=== PATIENT | male | born 1935 | race Caucasian/White ===

== ENCOUNTER 2019-11-14 20:17 | Emergency (ER) | payer OTHER, SELFPAY ==
--- NOTE | ~2019-11-14 | CT_ITS ---
EXAMINATION: CT brain wo con DATE: 11/14/2019 22:58 INDICATION: Gait instability. TECHNIQUE: Computed tomography (CT) of the head was performed without intravenous contrast. The mA wa s adjusted according to patient size. Iterative reconstruction technique was employed. The dose-lengt h product was 605.33 mGy-cm. COMPARISON: None FINDINGS: There is diffuse brain volume loss. There is an old lacunar infarct in the carlos. There is a n old lacunar infarct in left thalamus. There is no intracranial hemorrhage, acute infarction, or abn ormal intracranial mass lesion. The ventricles are normal in size. The orbits are normal. There is mi ld mucosal thickening in the ethmoid sinuses. The mastoid air cells are normal. IMPRESSION: 1. 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 Reviewed, dictated and finalized at location A.
[2019-11-14 20:47] VITALS: BP 135/84; PULSE 88; RESP 20; O2SAT 93
--- NOTE | 2019-11-14 20:47 | ECG_ITS ---
Measurements Intervals [place] Rate: 81 P: 55 [place]: 205 QRS: 95 QRSD: 142 T: 30 QT: 386 QTc: 451 Interpretive Statements SINUS RHYTHM WITH FIRST DEGREE AV BLOCK VENTRICULAR PREMATURE COMPLEX RIGHT BUNDLE BRANCH BLOCK ABNORMAL ECG Electronically Signed On 11-15-2019 7:02:18 CDT by Luke Adams D.O.
[2019-11-14 20:55] VITALS: PULSE 87
[2019-11-14 21:00] VITALS: BP 156/56; PULSE 86; RESP 14; O2SAT 93
--- NOTE | 2019-11-14 21:00 | ED.WEAKNESS ---
HPI - Weakness General Chief complaint: Weakness Stated complaint: weak Time Seen by Provider: 11/14/19 20:35 History of Present Illness HPI Narrative: Patient is a 84 y/o male complaining of moderate bilateral leg weakness for last 2 days. He has some difficulty with walking, but he is able to walk with his cane and sometimes walker. There is no alleviating or exacerbating factor. He states that he ran into a wall 2 days ago. He denies falling down or passing out. Related Data Allergies Allergy/AdvReac Type Severity Reaction Status Date / Time No Known Allergies Allergy Unknown Verified 11/16/05 18:25 Review of Systems Constitutional: Constitutional: Denies chills, Denies fever(s), Denies headache(s) and Reports weakness Eyes: Eyes: Denies blurry vision ENT: Denies headache(s) and Denies neck pain Cardiovascular: Cardiovascular: Denies chest pain and Denies dyspnea Respiratory: Respiratory: Denies cough and Denies dyspnea Gastrointestinal: Gastrointestinal: Denies abdominal pain, Denies diarrhea, Denies nausea and Denies vomiting Genitourinary: Genitourinary: Denies hematuria and Denies dysuria Musculoskeletal: Musculoskeletal: Denies back pain and Denies neck pain Neurologic: Denies headache(s) and Reports weakness [facility] Social History Social History Gender identity (if verbalized by the patient): Male Exam Const: General: no acute distress and well developed Orientation/consciousness: oriented to person, oriented to place, oriented to time and patient oriented x3 HENMT: Head: normocephalic Ears: external ears normal General nose exam: Normal external nose present Eyes: General: appearance normal, both eyes and all related structures Conjunctivae: conjunctivae normal Neck: Neck: normal visual inspection and full ROM Chest: Chest palpation & inspection: normal inspection of the chest and no tenderness Resp: Effort & Inspection: normal respiratory effort Auscultation: clear to auscultation bilaterally Cardio: Rate: regular rate Rhythm: regular rhythm GI: GI Palp: No abdominal tenderness and Yes Soft to palpation Skin: General skin exam: normal color and turgor normal Neuro: General: oriented to person, oriented to place, oriented to time and patient oriented x3 Cranial nerves: Yes CN's II-XII intact bilaterally Cognition (Neuro): normal cognition Speech: normal speech Motor exam (neuro): 5/5 motor strength present throughout Sensory Exam: normal sensation Coordination: [id number] test normal and [id number] test normal Extrem: General: normal to inspection, full ROM and no pedal edema Psych: Appearance: grossly normal Mental Status: mental status grossly normal Affect: normal affect Course Reevaluation(s) Reevaluation #1: Patient is able to ambulate while in ED. Date: 11/14/19 Vital Signs Vital signs: Vital Signs Pulse Rate 88 11/14/19 20:47 Respiratory Rate 20 11/14/19 20:47 Blood Pressure 135/84 11/14/19 20:47 Pulse Oximetry 93 11/14/19 20:47 Pulse Rate 87 11/15/19 00:28 Respiratory Rate 18 11/15/19 00:28 Blood Pressure 155/69 H 11/15/19 00:28 Pulse Oximetry 94 11/15/19 00:28 MDM - Weakness Lab Data Result diagrams: 11/14/19 20:58 11/14/19 20:58 Labs: Lab Results 11/14/19 11/14/19 Range/Units 20:58 20:58 WBC 7.9 (4.5-10.0) K/mm3 RBC 4.63 (4.6-6.20) M/mm3 Hgb 13.9 L (14.0-18.0) g/dL Hct 41.8 L (42.0-52.0) % MCV 90.3 (80-100) fl MCH 30.0 (26-34) pg MCHC 33.3 (32-36) g/dl RDW 13.7 (11.5-14.5) % Plt Count 262 (150-375) k/mm3 MPV 11.6 H (7.4-10.4) fl Immature Gran % (Auto) 0.3 (0-0.5) % Neut % (Auto) 59.7 (45.5-73.1) % Lymph % (Auto) 26.5 (18.3-44.2) % [place] % (Auto) 8.7 H (2.6-8.5) % Eos % (Auto) 4.2 (0-4.4) % Baso % (Auto) 0.6 (0.2-1.2) % Lymph # (Auto) 2.10 (0.9-3.2) K/mm3 [place] #
[2019-11-14 21:16] LABS: Basophils Absolute Auto 0.1 K/mm3 (0.0-0.1); Basophils Percent Auto 0.6 % (0.2-1.2); Eosinophils Absolute Auto 0.3 K/mm3 (0-0.3); Eosinophils Percent Auto 4.2 % (0-4.4); Hematocrit 41.8 % (42.0-52.0); Hemoglobin 13.9 g/dL (14.0-18.0); Immature Granulocyte Absolute 0.02 K/mm3 (0.00-0.031); Immature Granulocyte Percent A 0.3 % (0-0.5); Lymphocytes Percent Auto 26.5 % (18.3-44.2); Mean Corpuscular HGB Conc 33.3 g/dl (32-36); Mean Corpuscular Volume 90.3 fl (80-100); Mean Platelet Volume 11.6 fl (7.4-10.4); Monocytes Absolute Auto 0.7 K/mm3 (0.1-0.6); Monocytes Percent Auto 8.7 % (2.6-8.5); Neutrophils Absolute Auto 4.7 K/mm3 (1.3-6.7); Neutrophils Percent Auto 59.7 % (45.5-73.1); Platelet Count Result 262 k/mm3 (150-375); Red Blood Count 4.63 M/mm3 (4.6-6.20); Red Cell Distribution Width 13.7 % (11.5-14.5); White Blood Count 7.9 K/mm3 (4.5-10.0)
[2019-11-14 21:27] LABS: Blood Urea Nitrogen 23 mg/dL (9-20); Calcium 9.2 mg/dL (8.4-10.2); Carbon Dioxide 31 mmol/L (22-30); Chloride 97 mmol/L (98-107); Estimated CRCL calculation 49 ml/min; Estimated Glomerular Filt Rate > 60; Glucose 228 mg/dL (75-110); Potassium 4.5 mmol/L (3.4-5.0); Sodium 136 mmol/L (137-145)
[2019-11-15 00:28] VITALS: BP 155/69; PULSE 87; RESP 18; O2SAT 94
--- NOTE | 2019-11-15 00:32 | PC.NURSE ---
Pt performed walking assessment per Md request, pt tolerated walk well. Pt walked to door and back to bed with no assistance.
== END 2019-11-14 23:25 | disposition home or self-care (01) ==
PROVIDERS: Emergency Provider Emergency Medicine; PCP Family Medicine Adolescent Medicine
DX: R53.1 Weakness (principal); I45.10 Unspecified right bundle-branch block
CPT/HCPCS: 36415; 70450; 80048; 85025; 93005; 99284

== ENCOUNTER 2020-02-24 03:45 | Outpatient (CLI) | payer OTHER, SELFPAY ==
[2020-02-24 17:45] LABS: SARS-CoV-2 RNA PCR Negative
== END 2020-02-24 03:46 | disposition home or self-care (01) ==
LOC: ANHCOVIDDT 03:45
PROVIDERS: PCP Family Medicine Adolescent Medicine; Visit Provider Family Medicine Adolescent Medicine
DX: Z01.812 Encounter for preprocedural laboratory examination (principal); Z20.828 Contact with and (suspected) exposure to other viral communicable diseases; R91.1 Solitary pulmonary nodule
CPT/HCPCS: 87635; C9803; U0003

== ENCOUNTER 2020-02-27 09:31 | Outpatient (CLI) | payer OTHER, SELFPAY ==
[2020-02-21 14:13] VITALS: BMI 26.6
[2020-02-27 10:23] LABS: Basophils Absolute Auto 0.1 K/mm3 (0.0-0.1); Basophils Percent Auto 0.8 % (0.2-1.2); Eosinophils Absolute Auto 0.2 K/mm3 (0-0.3); Hematocrit 39.4 % (42.0-52.0); Hemoglobin 12.6 g/dL (14.0-18.0); Immature Granulocyte Absolute 0.02 K/mm3 (0.00-0.031); Immature Granulocyte Percent A 0.3 % (0-0.5); Lymphocytes Absolute Auto 1.51 K/mm3 (0.9-3.2); Lymphocytes Percent Auto 22.7 % (18.3-44.2); Mean Corpuscular Volume 93.8 fl (80-100); Mean Platelet Volume 10.4 fl (7.4-10.4); Monocytes Absolute Auto 0.6 K/mm3 (0.1-0.6); Monocytes Percent Auto 8.3 % (2.6-8.5); Neutrophils Absolute Auto 4.3 K/mm3 (1.3-6.7); Neutrophils Percent Auto 64.9 % (45.5-73.1); Platelet Count Result 279 k/mm3 (150-375); Red Cell Distribution Width 14.5 % (11.5-14.5); White Blood Count 6.7 K/mm3 (4.5-10.0)
[2020-02-27 10:31] LABS: Prothrombin Time 12.4 Seconds (11.1-14.7)
== END 2020-02-27 09:32 | disposition home or self-care (01) ==
PROVIDERS: Radiology Diagnostic Radiology; PCP Family Medicine Adolescent Medicine; Visit Provider Family Medicine Adolescent Medicine
DX: R91.1 Solitary pulmonary nodule (principal)
CPT/HCPCS: 36415; 85025; 85610

== ENCOUNTER 2020-02-29 10:54 | Outpatient (CLI) | payer OTHER, SELFPAY ==
[2020-02-29] VITALS (10 sets, daily range): BP systolic 125–155; BP diastolic 53–81; PULSE 66–74; RESP 20; TEMP 36.1; O2SAT 95–100
--- NOTE | ~2020-02-29 | XR_ITS ---
EXAMINATION: XR chest 1V portable DATE: 02/29/2020 15:07 INDICATION: Left lung nodule status post percutaneous biopsy. TECHNIQUE: A single frontal view of the chest was obtained. COMPARISON: Chest single view at 12:56 PM. FINDINGS: There is chronic elevation of left hemidiaphragm. There is mild atelectasis in the lower koffi ng zones. There is a nodule in the lingula. A calcified right lung nodule is consistent with old gran ulomatous disease. No pneumothorax. The heart size is normal. IMPRESSION: 1. Nodule in lingula suspicious for primary bronchogenic carcinoma. Reviewed, dictated and finalized at location A.
--- NOTE | ~2020-02-29 | CT_ITS ---
EXAMINATION: CT biopsy lung DATE: 02/29/2020 12:36 INDICATION: Left lung upper lobe nodule. TECHNIQUE: The procedure including the risks, benefits, and alternatives and possibility of chest tub e placement were discussed with the patient. Risks discussed included infection, approximately 1/20 r isk of symptomatic hemorrhage beyond mild hemoptysis, approximately 1/3 risk of pneumothorax, approxi mately 1/10 risk of pneumothorax severe enough to warrant chest tube placement, and rarely . The patient understood the risks and agreed to proceed. The patient was placed supine with the left side elevated. The skin overlying the left chest was prepped and draped in sterile fashion. Anesthetic was administered with 1% lidocaine subcutaneously. A 19 gauge outer needle was advanced under CT lee dance to the lesion of interest. A 20 gauge core biopsy needle was then used to obtain 4 core biopsy specimens. The needle was removed and the entry site was cleaned and dressed. The mA was adjusted acc ording to patient size. Iterative reconstruction technique was employed. The dose-length product was 207.55 mGy-cm. There were no immediate complications. FINDINGS: CT images demonstrate the outer needle tip adjacent to a 19 mm nodule in the lingula. IMPRESSION: 1. CT-guided core needle biopsy of a 19 mm nodule in the lingula. Reviewed, dictated and finalized at location A.
--- NOTE | ~2020-02-29 | XR_ITS ---
EXAMINATION: XR chest 1V portable DATE: 02/29/2020 13:06 INDICATION: Left lung nodule status post percutaneous biopsy. TECHNIQUE: A single frontal view of the chest was obtained. COMPARISON: Chest single view at 12:17 PM FINDINGS: There is chronic mild elevation of left hemidiaphragm. There is a nodule in the lingula. Th ere is mild atelectasis in the lower lung zones. A calcified right lung nodule is consistent with old granulomatous disease. No pleural effusion or pneumothorax. The heart size is normal. IMPRESSION: 1. Nodule in the lingula suspicious for primary bronchogenic carcinoma. Reviewed, dictated and finalized at location A.
--- NOTE | ~2020-02-29 | XR_ITS ---
EXAMINATION: XR chest 1V DATE: 02/29/2020 12:20 INDICATION: Left lung nodule status post percutaneous biopsy. TECHNIQUE: A single frontal view of the chest was obtained. COMPARISON: Chest single view 01/21/2020, chest CT 01/21/2020 FINDINGS: There is chronic elevation of left hemidiaphragm. There is a nodule in the lingula. A calci fied right lung nodule and calcified right hilar lymph nodes are consistent with old granulomatous di sease. There is mild atelectasis in the lower lung zones. No pneumothorax. The heart size is normal. IMPRESSION: 1. Nodule in the lingula suspicious for primary bronchogenic carcinoma. Reviewed, dictated and finalized at location A.
--- NOTE | 2020-02-29 15:38 | SUR.PHASEII ---
1515 - iv marycarmen'smooth. catheter intact
--- NOTE | 2020-02-29 15:39 | SUR.PHASEII ---
1520 dr. alfredo called and okayed to discharge home
== END 2020-02-29 15:30 | disposition home or self-care (01) ==
PROVIDERS: Radiology Diagnostic Radiology; PCP Family Medicine Adolescent Medicine; Visit Provider Family Medicine Adolescent Medicine
DX: R91.1 Solitary pulmonary nodule (principal); C34.92 Malignant neoplasm of unspecified part of left bronchus or lung
CPT/HCPCS: 32405; 71045; 77012; 88305; 88342

== ENCOUNTER 2020-08-02 13:30 | Outpatient (CLI) | payer OTHER, SELFPAY ==
--- NOTE | ~2020-08-02 | PE_ITS ---
EXAMINATION: PET skull to mid thigh DATE: 08/02/2020 15:10 INDICATION: Malignant neoplasm of left lung upper lobe. TECHNIQUE: Blood glucose level was 47 mg/dL. 10.8 mCi of 18-fluorodeoxyglucose (18-FDG) was administe red i.v. Low dose computed tomography (CT) images were acquired from the base of the brain to the pro ximal thighs for attenuation correction and anatomic localization. Automated exposure control was emp loyed. Dose-length product (DLP) was 657 mGy-cm. Positron emission tomography (PET) images were acqui red in the same distribution. COMPARISON: Chest CT 01/21/2020 FINDINGS: Head/neck: There are no pathologically enlarged lymph nodes. Chest: There is mild scarring at the lung apices. There is mild emphysema. There are scattered ground glass opacities in the lungs bilaterally, likely chronic lung disease. There is a 4.2 x 2.4 cm mass i n the lingula, likely a combination of malignancy and treatment change or pneumonia. There is increas ed activity in a 2 cm focus at the medial aspect of the mass with maximum SUV of 7.2. Calcified right lung nodules and calcified right hilar and mediastinal lymph nodes are consistent with old granuloma tous disease. No pleural effusion. The heart size is normal. No pericardial effusion. There are coron romeo artery calcifications. There is mediastinal lymphadenopathy without increased activity. For examp le, a right paratracheal node measures 3.0 x 2.2 cm. Abdomen/pelvis/proximal thighs: The liver, gallbladder, spleen, pancreas, adrenal glands, and right k idney are normal. There is a 17 mm peripelvic cyst in left kidney. There are no dilated loops of massimo l. There is a left inguinal hernia containing nonobstructed sigmoid colon. There is a right inguinal hernia containing fat. There are stents in right common iliac artery and right superficial femoral ar dixie. There are no pathologically enlarged lymph nodes. There is no free intraperitoneal fluid. There is no osseous malignancy. IMPRESSION: 1. Mass in the lingula with increased activity at its medial aspect, likely a combination of primary bronchogenic carcinoma and peripheral postobstructive pneumonia versus treatment change. 2. Worsened mediastinal lymphadenopathy without increased activity, which may be reactive lymphadenop athy or treated metastatic disease. 3. Left inguinal hernia containing nonobstructed sigmoid colon. Reviewed, dictated and finalized at location A. IMPRESSION: 1. Mass in the lingula with increased activity at its medial aspect, likely a c ombination of primary bronchogenic carcinoma and peripheral postobstructive pne umonia versus treatment change. 2. Worsened mediastinal lymphadenopathy without increased activity, which may b e reactive lymphadenopathy or treated metastatic disease. 3. Left inguinal hernia containing nonobstructed sigmoid colon.
[2020-08-02 13:54] LABS: Glucose Point of Care 47 (65-105)
== END 2020-08-02 13:31 | disposition home or self-care (01) ==
PROVIDERS: PCP Family Medicine Adolescent Medicine; Visit Provider Radiology Radiation Oncology
DX: C34.12 Malignant neoplasm of upper lobe, left bronchus or lung (principal)
CPT/HCPCS: 78815; A9552

== ENCOUNTER 2020-10-07 09:30 | Inpatient (IN) | payer OTHER, SELFPAY ==
[2020-10-07] VITALS (36 sets, daily range): BP systolic 110–168; BP diastolic 52–126; PULSE 92–111; RESP 17–35; TEMP 36.3–36.9; O2SAT 94–97; BMI 21.6
--- NOTE | ~2020-10-07 | CT_ITS ---
EXAMINATION: CT brain wo con, CT cervical spine wo con EXAM DATE: 10/07/2020 10:41 INDICATION: Slurred speech for one week, confusion. Left facial droop. Fell this morning. TECHNIQUE: Spiral CT of the head was performed without contrast. Axial, coronal and sagittal images were reviewed. Spiral CT of the cervical spine was performed without contrast. Axial images were rev iewed. Coronal and sagittal reformatted images were also reviewed. The dose-length product (DLP) fo r this examination was 605.33 (accession [id number]), 183.19 (accession [id number]) mGy-cm. The exposure was tailored according to patient size, and iterative reconstruction (ASIR) was used as additional dose reduction technique. Comparison is made to prior examination from 11/14/2019. FINDINGS: HEAD CT: There is moderate-sized acute to subacute left parietal lobe infarction, middle cerebral art sean distribution. No hemorrhagic conversion. There is right-sided pontine lacunar infarction. There i s no acute intraparenchymal hemorrhage. No evidence of intraparenchymal brain mass lesion. There is mild periventricular and subcortical hypodensity, nonspecific but probably related to small vessel i schemic disease. There is moderate to severe prominence of the sulci and ventricles related to cere bral atrophy. There is no mass effect or midline shift. There is no obstructive hydrocephalus susp ected. There are no extra-axial collections. There are no acute calvarial fractures. The orbits ar e unremarkable. Soft tissue is unremarkable. The visualized sinuses and mastoid air cells are well aerated. CERVICAL CT: There is no evidence of acute cervical fracture. The odontoid process is intact. Pre- dens space is normal. Prevertebral soft tissue is normal. There are no soft tissue abnormalities id entified. There is no disc space widening or traumatic vertebral body subluxation suspected. Advanc ed cervical spondylosis. A detailed level by level evaluation of spondylosis can be added as addendu m if requested. IMPRESSION: 1. Moderate-sized acute to subacute left parietal lobe infarction. 2. Old right carlos lacunar infarction. 3. Age-related intracranial findings. 4. Advanced cervical spondylosis. Reviewed, dictated and finalized at location A. IMPRESSION: 1. Moderate-sized acute to subacute left parietal lobe infarction. 2. Old right carlos lacunar infarction. 3. Age-related intracranial findings. 4. Advanced cervical spondylosis.
--- NOTE | ~2020-10-07 | US_ITS ---
EXAMINATION: US carotid duplex BI DATE: 10/09/2020 16:45 INDICATION: Acute infarct involving the left frontal, parietal, and temporal lobes. TECHNIQUE: Grayscale, color Doppler, and pulsed Doppler images of the cervical carotid arteries were obtained. The degree of vessel stenosis is placed in one of the following categories: normal, <50%, 5 0-69%, >=70% but less than near-occlusion, near-occlusion, or total occlusion. Note that percent sten osis relative to normal distal artery lumen diameter is indirectly measured from velocity measurement s as described by David, et al. Radiology 2003; [id number]:[id number]. COMPARISON: None. FINDINGS: RIGHT: The right common carotid artery (CCA) peak systolic velocity (PSV) is 100 cm/s. The right internal ca rotid artery (ICA) PSV is 90 cm/s. The right ICA end-diastolic velocity (EDV) is 17 cm/s. The right I CA/CCA PSV ratio is 0.9. Grayscale and color Doppler images yield an estimate of <50% diameter reduct ion from plaque in the ICA. There is antegrade flow in the right vertebral artery. LEFT: The left CCA PSV is 75 cm/s. The left ICA PSV is 78 cm/s. The left ICA EDV is 14 cm/s. The left ICA/C CA PSV ratio is 1.0. Grayscale and color Doppler images yield an estimate of <50% diameter reduction from plaque in the ICA. There is antegrade flow in the left vertebral artery. IMPRESSION: 1. <50% stenosis in the right internal carotid artery. 2. <50% stenosis in the left internal carotid artery. Reviewed, dictated and finalized at location A.
--- NOTE | ~2020-10-07 | XR_ITS ---
EXAMINATION: XR hip LT 2V w AP pelvis EXAM DATE: 10/07/2020 10:57 INDICATION: Initial encounter following injury, with pain of the left groin. TECHNIQUE: Left hip frontal, 'frog leg' projections for interpretation. Frontal projection pelvis. There is no prior study for comparison. FINDINGS: Smooth left hip femoral head contour, no radiographic evidence of avascular necrosis. The re are no acute pelvic or left hip fractures identified. Right superficial femoral arterial stent or graft. Right common iliac artery stent. There is mild to moderate symmetric bilateral hip primary ost eoarthritis. IMPRESSION: No acute pelvis, left hip fractures. Reviewed, dictated and finalized at location A.
--- NOTE | ~2020-10-07 | MR_ITS ---
EXAMINATION: MR brain/brain stem wo/w con DATE: 10/09/2020 16:18 INDICATION: Left facial weakness. Slurred speech. Cerebral vascular accident. TECHNIQUE: Magnetic resonance imaging (MRI) of the brain and brainstem was performed without and with 14 mL MultiHance intravenous contrast. Sequences included sagittal and axial T1-weighted FSE, axial diffusion-weighted FS EPI, axial T2*-weighted GRE, axial T2-weighted FLAIR Propeller, and axial T2-we ighted Propeller. Postcontrast sequences included axial and coronal T1-weighted FSE. Apparent diffusi on coefficient (ADC) maps were created. COMPARISON: Head CT 10/07/2020 FINDINGS: There is an acute infarct involving the left frontal, parietal, and temporal lobes in the e xpected distribution of left middle cerebral artery. There is old infarct in the carlos. There are scat tered areas of nonspecific increased T2-weighted signal intensity in the cerebral white matter, which is within normal limits for the patient's age. There is no intracranial hemorrhage, acute infarction , or abnormal intracranial mass lesion. The ventricles are normal in size. There is mild mucosal thic kening in the paranasal sinuses. The orbits are normal. The mastoid air cells are normal. IMPRESSION: 1. Acute infarct involving the left frontal, parietal, and temporal lobes. 2. Old infarct in the carlos. Reviewed, dictated and finalized at location A.
--- NOTE | ~2020-10-07 | XR_ITS ---
EXAMINATION: XR knee LT min 4V EXAM DATE: 10/07/2020 10:57 INDICATION: Unwitnessed fall. TECHNIQUE: Left knee frontal, crosstable lateral, orthogonal oblique projections for interpretation. There is no prior study for comparison. FINDINGS: No evidence osteochondral defect or joint body in the left knee joint. There is mild prim romeo osteoarthritis. There are no acute fractures or dislocations identified. There is no subcutaneou s gas. There are arterial calcifications, arteriosclerosis. There are no radiopaque foreign bodies . No joint effusion. IMPRESSION: 1. XR knee LT min 4V exam without acute osseous findings. Reviewed, dictated and finalized at location A.
--- NOTE | ~2020-10-07 | XR_ITS ---
EXAMINATION: XR chest 1V EXAM DATE: 10/07/2020 10:57 INDICATION: Shortness of breath. Unwitnessed fall. Lingular adenocarcinoma. TECHNIQUE: Portable AP frontal chest x-ray was obtained. Comparison is made to prior examination from 02/29/2020. FINDINGS: There is increase in amount of left basilar airspace disease, in patient with known primary lung cancer in this location. Progression of that disease process, or development of superimposed pn eumonia. No pneumothorax. There is aortic arteriosclerosis. Chronic left hemidiaphragm elevation. No pneumothorax. IMPRESSION: 1. Progression of left basilar opacity, cancer and/or pneumonia. Reviewed, dictated and finalized at location A.
--- NOTE | ~2020-10-07 | XR_ITS ---
EXAMINATION: XR chest 1V portable EXAM DATE: 10/12/2020 05:53 INDICATION: Pneumonia and lung CA. TECHNIQUE: Portable AP frontal chest x-ray was obtained. Comparison is made to prior examination from 10/07/2020. FINDINGS: Previous exam from 5 days ago at some patchy left basilar airspace disease and mild volume loss. There is now complete opacity of the left hemithorax with ipsilateral mediastinal shift. This i s mostly atelectasis which could be postobstructive given that left mainstem bronchus appears cut off and no real evidence of air bronchograms. Also likely left pleural effusion which is difficult to qu antify. Consider prior chest x-ray, probable also bilateral pulmonary edema or pneumonia. There is ao rtic arteriosclerosis. There are bony degenerative changes. There is no pneumothorax suspected. IMPRESSION: 1. Completely collapsed left lung most likely postobstructive atelectasis. 2. Probable superimposed pneumonia or edema bilaterally. Reviewed, dictated and finalized at location A.
--- NOTE | ~2020-10-07 | XR_ITS ---
EXAMINATION: XR ankle LT min 3V EXAM DATE: 10/07/2020 10:56 INDICATION: Initial encounter following injury, with pain of the left ankle. TECHNIQUE: Left ankle frontal, lateral and oblique projections obtained and reviewed. There is no pr ior study for comparison. FINDINGS: The left ankle mortise appears intact. There are no acute fractures or dislocations ident ified. There is no subcutaneous gas. Soft tissue obscured by overlying bandage/compression wrap. T here are no radiopaque foreign bodies. IMPRESSION: 1. XR ankle LT min 3V exam without acute osseous findings. Reviewed, dictated and finalized at location A.
--- NOTE | 2020-10-07 09:41 | ECG_ITS ---
Measurements Intervals [place] Rate: 107 P: 43 [place]: 171 QRS: 103 QRSD: 146 T: 17 QT: 336 QTc: 449 Interpretive Statements SINUS TACHYCARDIA RIGHT AXIS DEVIATION RIGHT BUNDLE BRANCH BLOCK BASELINE ARTIFACT- I, II, AVR, AVL, AVF, V2-V4 ABNORMAL ECG Electronically Signed On 10-07-2020 15:17:17 CDT by Luke Adams D.O.
[2020-10-07 09:49] LABS: Glucose Point of Care 202 mg/dl (65-105)
--- NOTE | 2020-10-07 09:54 | ED.AMS ---
HPI - Altered Mental Status General Chief Complaint: Altered Mental Status Stated Complaint: sob/neuro Source: patient, EMS, RN notes reviewed and old records reviewed Mode of arrival: EMS Limitations: altered mental status History of Present Illness HPI narrative: This is an 85 year old male who presents for evaluation of shortness of breath. EMS states patient's son called them because he found patient on the ground this morning, and the patient appeared to have trouble breath. EMS states after patient blew his nose, his son states his shortness of breath resolved. Patient is oriented to person and place. EMS reports patient was found to have left facial droop and slurred speech, and they were told by his son that patient has been consistently slurred for 1 week. Patient is unable to state why he fell and how long he has been on the ground. His only complaint is left leg pain. He has difficulty extending his leg. Both of his legs are wrapped with coban and he states home health comes to his house. Related Data Home Medications Medication Instructions Recorded Confirmed amlodipine 10 mg PO HS 01/21/20 10/07/20 gabapentin 300 mg PO BID 01/21/20 10/07/20 metformin 1,000 mg PO BID 01/21/20 10/07/20 pantoprazole 40 mg PO DAILY PRN 01/21/20 10/07/20 hydrocodone-acetaminophen [[place]] 1 tablet PO Q4H PRN 02/21/20 10/07/20 Allergies Allergy/AdvReac Type Severity Reaction Status Date / Time No Known Allergies Allergy Unknown Verified 10/07/20 17:54 Review of Systems Review of Systems: ROS unobtainable: Yes unobtainable due to mental status PMFSH Past Medical History Medical History (Updated 10/07/20 @ 19:27 by Ledy White MD) Diabetes mellitus Diastolic congestive heart failure GERD (gastroesophageal reflux disease) HTN (hypertension), malignant Hyperlipidemia Lung cancer Peripheral artery disease SVT (supraventricular tachycardia) (~2012) Surgical History Surgical History (Updated 08/28/20 @ 10:58 by Avery Luna MD) H/O inguinal hernia repair Hx of tonsillectomy Status post peripheral artery angioplasty with insertion of stent superficial femoral artery stent July 2016 Family History Family History Father Acute myocardial infarction Mother Diabetes mellitus Social History Social History (Updated 10/07/20 @ 17:33 by Arti Castaneda NP) Social History: he is a former smoker. He smoked on average 1 pack of cigarettes per day and started when he was 15 years old. He he stopped smoking in 2012. He drank quite heavily when he was in his 30s and 40s but has not drank any alcohol in many years. He has been since October 2019. 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 Primary care physician: Dr. Cristhian Isabel Code status: The patient states that he does not think he would want to have CPR or be intubated. But he is concerned that his son's will not be able to afford to live without him. He states that his son's need is still security in order to support themselves. He does not have a surrogate decision maker or advanced directives in place. it was determined that the patient is a DNR. Smoking packs per day: 2 Smoking cigarettes per day: 40.0 Years smoked: 60 Smoking pack-years: 120.00 Smoking status: Former smoker Tobacco type: cigarettes Alcohol intake: former Substance use type: does not use Gender identity (if verbalized by the patient): Male Spiritual care concerns: No Exam Const: General: alert, confusion and ill appearing HENMT: Face and sinus: other (right facial droop) Mouth: Yes lip normal and Yes moist mucous membranes Throat: uvula midline Eyes: EOM: EOMs intact bilaterally Chest: Chest palpation & inspection: normal inspection of the chest Resp: Effort & Inspection: normal respiratory effort and no retractions Auscultation: cl
[2020-10-07 09:55] LABS: Alveolar/Arterial O2 Gradient 51.4 mmHg; Base Excess ABG 1.8 mEq/l (+/-2.0); Device ROOM AIR; Fractional Inspired Oxygen 21 %; HCO3 ABG 25.1 mEq/l (22.0-26.0); Modified Allen's Test Pass; Oxygen Content ABG 12.6 %vol (16.0-22.0); Oxygen Saturation ABG 91.8 % (95.0-100.0); Oxyhemoglobin 88.3 % THb (90.0-100.0); PCO2 ABG 34.5 mmHg (35.0-45.0); PO2 FiO2 Ratio Arterial Blood 2.71 %; Site Drawn RIGHT RADIAL; Total Hemoglobin 10.1 g/dL (12.0-18.0)
--- NOTE | 2020-10-07 10:21 | PC.NURSE ---
Patient was given bed bath at this time and lily care provided. Noted patient is coverd in food and unkempt/disheveled. Noted sore to buttock with redness and excoriated. Also seen redness in lily area. Repositioned at this time and linens changed.
--- NOTE | 2020-10-07 10:30 | PC.NURSE ---
To CT at this time, unable to obtain labs. Will attempt blood draw when return to unit.
[2020-10-07 11:20] LABS: Basophils Percent Auto 0.2 % (0.2-1.2); Eosinophils Percent Auto 0.1 % (0-4.4); Hematocrit 30.9 % (42.0-52.0); Immature Granulocyte Absolute 0.15 K/mm3 (0.00-0.031); Immature Granulocyte Percent A 0.9 % (0-0.5); Mean Corpuscular HGB Conc 32.4 g/dl (32-36); Mean Corpuscular Hemoglobin 28.4 pg (26-34); Mean Corpuscular Volume 87.8 fl (80-100); Mean Platelet Volume 10.3 fl (7.4-10.4); Monocytes Absolute Auto 1.1 K/mm3 (0.1-0.6); Monocytes Percent Auto 6.6 % (2.6-8.5); Neutrophils Absolute Auto 14.1 K/mm3 (1.3-6.7); Neutrophils Percent Auto 87.2 % (45.5-73.1); Platelet Count Result 293 k/mm3 (150-375); Red Blood Count 3.52 M/mm3 (4.6-6.20); Red Cell Distribution Width 14.5 % (11.5-14.5); White Blood Count 16.1 K/mm3 (4.5-10.0)
[2020-10-07 11:24] LABS: Add Urine Microscopic? YES; Appearance Urine Clear (Clear); Bacteria Urine Trace /hpf; Bilirubin Urine Negative (Negative); Blood Urine Negative (Negative); Color Urine Yellow (Yellow); Glucose Urine UA 1+ mg/dL (Negative); Ketones Urine Trace mg/dL (Negative); Leukocyte Esterase Ur Negative LEU/UL (Negative); Mucus Urine Rare /lpf; Nitrate Urine Negative (Negative); Protein Urine 2+ mg/dL (Negative); Specific Grav Ur 1.026 (1.001-1.035); Squamous Epithelial Cell Urine Rare /hpf (Few); Urobilinogen Urine Negative mg/dL (<2.0); WBC Urine 0-3 /hpf
[2020-10-07 11:29] LABS: INR 1.1; Prothrombin Time 15.1 Seconds (11.1-14.7)
[2020-10-07 11:30] LABS: Alanine Aminotransferase 16 U/L (4-50); Albumin Level 2.8 g/dL (3.5-5.1); Alkaline Phosphatase 83 U/L (38-126); Ammonia < 9 umol/L (9-30); Anion Gap 8 mmol/L (8-16); Aspartate Amino Transferase 31 U/L (17-59); Bilirubin,Total 0.8 mg/dL (0.2-1.3); Blood Urea Nitrogen 21 mg/dL (9-20); Calcium 8.4 mg/dL (8.4-10.2); Carbon Dioxide 25 mmol/L (22-30); Chloride 101 mmol/L (98-107); Creatine Kinase 222 U/L (55-170); Estimated CRCL calculation 76 ml/min; Estimated Glomerular Filt Rate > 60; Ethanol < 10 mg/dL (<10); Glucose 211 mg/dL (75-110); Partial Thromboplastin Time 37.1 SECONDS (22.3-36.8); Potassium 4.6 mmol/L (3.4-5.0); Sodium 134 mmol/L (137-145)
[2020-10-07 11:41] LABS: Amphetamine Screen Urine Negative (Negative); Barbiturate Screen Urine Negative (Negative); Benzodiazepines Screen Urine Negative (Negative); Cannabinoid Screen Urine Negative (Negative); Cocaine Screen Urine Negative (Negative); Methadone Screen Urine Negative (Negative); Opiate Screen Urine Positive (Negative); Phencyclidine Screen Urine Negative (Negative)
[2020-10-07 11:51] LABS: Troponin I 0.035 ng/mL (0.000-0.034)
--- NOTE | 2020-10-07 16:15 | ADMGEN ---
This patient, Behzad Moon, was admitted to Medical Room 341-01. Patient/family oriented to hospital policies and general routines including ID bracelet, bed and alarms, visiting hours, pain management, procedures, bathroom and other care routines, personal items, smoking policy, room service/diet, and visiting hours. Information on how to activate the Rapid Response Team has been discussed. Patient/Family are encouraged to report perceived risks to care and to ask questions if they do not understand what they are told or what they should do.
[2020-10-07] MEDS: SODIUM CHLORIDE 0.9% IV 1,000 ML 125 ML IV CONT (17:09)
--- NOTE | 2020-10-07 17:13 | PM.IMHP ---
H&P: HPI History of Present Illness Date/Time: 10/07/20 17:13Thicarol is a 85-year-old male patient who lives with his disabled son. The patient came to the emergency room to be evaluated for shortness of breath. EMS stated that the patient's son called because he found him on the ground this morning and appeared to be having problems breathing. The patient fluids nose and then his shortness of breath was resolved. The patient was orientated to person and place. EMS found that the patient had a facial droop and slurred speech. The disabled son told EMS that the patient's speech had been slurred for 1 week. The patient was not able to tell EMS how long you have been on the ground. He also complained of left leg pain. He had wraps on his lower extremities when I was in the emergency room and is to dizzy came to the medical floor we unwrapped the been found a large amount of eschar tissue to the left leg. The patient was unkempt and smells of cigarette smoke and body odor. The patient was having difficulty standing his left leg. Home health does come to his home. The patient has a history of having lung cancer and has radiation treatments. However it looks like the last time he saw Radiation Oncology was 08/28/2020. 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 The patient's white count was noted to be 16.1 hip and pelvis x-ray were read as no acute pelvis, left hip fracture. Knee x-ray to the left was without osseous findings. X-ray of the left ankle x-ray ankle left three-view exam without acute osseous findings. Chest x-ray was read as progression of left basilar opacities, cancer and or pneumonia. Head CT was read as moderate sized acute to subacute left parietal lobe infarction. Old right carlos lacunar infarction. Age-related intracranial findings. Advanced cerebral spondylosis.The patient's speech was slurred and I was having difficulty understanding the patient. The ER provider reviewed the power immigration attorney papers and talked with the patient's son And it was determined that the patient is a DNR. The patient is being admitted to inpatient services on the date of service of 10/07/2020. Chief Complaint: Confusion and fall Review of Systems Review of Systems: All systems reviewed & are unremarkable except as noted in HPI and below Constitutional: Constitutional: Reports as per HPI and Reports no additional constitutional complaints Eyes: Eyes: Reports as per HPI and Reports no additional eye complaints ENT: Reports system reviewed and no additional complaints, except as documented and Reports Normal hearing present Cardiovascular: Cardiovascular: Reports no additional cardiovascular complaints Respiratory: Respiratory: Reports no additional respiratory complaints and Reports no additional respiratory complaints Gastrointestinal: Gastrointestinal: Reports as per HPI and Reports no additional gastrointestinal complaints Musculoskeletal: Musculoskeletal: Reports no additional musculoskeletal complaints Integumentary/Breasts: Skin/Breast: Reports system reviewed and no additional complaints, except as docu and Reports as per HPI Neurologic: Reports system reviewed and no additional complaints, except as documented, Reports as per HPI and Reports Normal hearing present Psychiatric: Psychiatric: Reports no additional psychiatric complaints and Reports as per HPI Endocrine: Endocrine: Reports no additional endocrine complaints Hematologic/Lymphatic: Hematologic/Lymphatic: Reports no additional hematologic/lymphatic complaints Allergic/Immunologic: Allergic/Immunologic: Reports no additional allergic/immunologic complaints [facility] Past Medical History Medical History (Updated 10/07/20 @ 17:48 by Arti Castaneda NP) Diabetes mellitus Diastolic congestive heart failure GERD (gastroesophageal reflux disease) HTN (hypertension), malignant Hyperlipidemia Lung cancer Per
[2020-10-07 18:26] LABS: Glucose Point of Care 198 mg/dl (65-105)
[2020-10-07 23:19] LABS: Glucose Point of Care 167 mg/dl (65-105)
[2020-10-08] VITALS (12 sets, daily range): BP systolic 140–146; BP diastolic 41–43; PULSE 90–109; RESP 18–24; TEMP 35.8–36.6; O2SAT 91–94
[2020-10-08] MEDS: SODIUM CHLORIDE 0.9% IV 1,000 ML 125 ML IV CONT ×3 (02:54→21:47)
--- NOTE | 2020-10-08 06:00 | ECHO_ITS ---
Patient Info Name: Behzad Moon Age: 85 years : 1935 Gender: Male Ht: 71 in Wt: 155 lbs BSA: 1.87 m2 HR: 68 bpm BP: 140 / 43 mmHg Heart Rhythm: Sinus Rhythm Technical Quality: Good Exam Date: 10/08/2020 11:37 AM Exam Location: [facility] Pulmonary Exam Room: 341 Patient Status: Inpatient Admit Date: 10/07/2020 Staff Ordering Physician: Ledy White MD Shift Stacker: [id number] Attending Provider: Uli Quintanilla MD Referring Physician: Cindy RIGGS; Exam Type: CA echo doppler color flow Study Info Indications - CVA Complete two-dimensional, color flow and Doppler transthoracic echocardiogram is performed. Summary 1. Complete two-dimensional, color flow and Doppler transthoracic echocardiogram is performed. 2. There is mild concentric increased left ventricular wall thickness. 3. Left ventricular systolic function is normal, estimated at 65-70%. 4. Left atrial chamber dimension is mildly enlarged. 5. The mitral valve annulus is mildly calcified. 6. Anterior mitral leaflet is mildly thickened. Left Ventricle Left ventricular chamber dimension is normal. Left ventricular systolic function is normal, estimated at 65-70%. There is mild concentric increased left ventricular wall thickness. The left ventricular diastolic function is grade I diastolic dysfunction. Right Ventricle Right ventricular chamber dimension is normal. Left Atria Left atrial chamber dimension is mildly enlarged. Right Atria Right atrial chamber dimension is normal. Aortic Valve The aortic valve is normal. Pulmonic Valve The pulmonic valve is normal. Mitral Valve The mitral valve has thickened leaflets. The mitral valve annulus is mildly calcified. Anterior mitral leaflet is mildly thickened. Tricuspid Valve The tricuspid valve leaflets are normal. There is mild tricuspid valve regurgitation. Pericardium/Pleural The pericardium appears normal. Aorta The aortic root size at the sinus of Valsalva is normal. Left Ventricular Outflow Tract Name Value Normal LVOT 2D LVOT Diameter 2.0 cm LVOT Doppler LVOT Peak Velocity 120 cm/s LVOT Peak Gradient 6 mmHg LVOT Mean Gradient 3 mmHg LVOT VTI 23 cm LVOT VTI/AV VTI Ratio 0.7 LVOT Stroke Volume 72 ml LVOT CO 15.8 l/min LVOT CI 8.5 l/min/m2 Pulmonic Valve Name Value Normal PV Doppler PV Peak Velocity 99 cm/s PV Peak Gradient 4 mmHg Mitral Valve Name Value Normal
[2020-10-08 06:06] LABS: Basophils Percent Auto 0.2 % (0.2-1.2); Eosinophils Absolute Auto 0.1 K/mm3 (0-0.3); Eosinophils Percent Auto 0.4 % (0-4.4); Hematocrit 29.5 % (42.0-52.0); Hemoglobin 9.5 g/dL (14.0-18.0); Immature Granulocyte Percent A 0.6 % (0-0.5); Lymphocytes Absolute Auto 1.05 K/mm3 (0.9-3.2); Lymphocytes Percent Auto 6.8 % (18.3-44.2); Mean Corpuscular HGB Conc 32.2 g/dl (32-36); Mean Corpuscular Hemoglobin 28.3 pg (26-34); Mean Corpuscular Volume 87.8 fl (80-100); Mean Platelet Volume 10.4 fl (7.4-10.4); Monocytes Percent Auto 6.4 % (2.6-8.5); Neutrophils Absolute Auto 13.3 K/mm3 (1.3-6.7); Neutrophils Percent Auto 85.6 % (45.5-73.1); Platelet Count Result 277 k/mm3 (150-375); Red Blood Count 3.36 M/mm3 (4.6-6.20); Red Cell Distribution Width 14.4 % (11.5-14.5); White Blood Count 15.5 K/mm3 (4.5-10.0)
[2020-10-08 06:13] LABS: Glucose Point of Care 158 mg/dl (65-105)
[2020-10-08 06:30] LABS: Alanine Aminotransferase 17 U/L (4-50); Albumin Level 2.5 g/dL (3.5-5.1); Alkaline Phosphatase 84 U/L (38-126); Anion Gap 8 mmol/L (8-16); Aspartate Amino Transferase 42 U/L (17-59); Bilirubin,Total 0.7 mg/dL (0.2-1.3); Blood Urea Nitrogen 11 mg/dL (9-20); Calcium 7.8 mg/dL (8.4-10.2); Carbon Dioxide 24 mmol/L (22-30); Chloride 101 mmol/L (98-107); Estimated CRCL calculation 88 ml/min; Estimated Glomerular Filt Rate > 60; Glucose 163 mg/dL (75-110); Magnesium 1.6 mg/dL (1.6-2.3); Potassium 3.6 mmol/L (3.4-5.0); Sodium 133 mmol/L (137-145)
[2020-10-08 07:07] LABS: Lactic Acid Reflex 1.1 mmol/L (0.7-2.1)
[2020-10-08 08:05] LABS: Glucose Point of Care 175 mg/dl (65-105)
--- NOTE | 2020-10-08 08:33 | PCOTNOTE ---
OT evaluation attempted. Unable to arouse at this time. Will attempt at later time.
--- NOTE | 2020-10-08 08:33 | PCPTNOTE ---
Attempted PT eval. Unable to arouse pt. Will try again at later time.
[2020-10-08] MEDS: ASPIRIN 300 MG SUPPOSITORY RECTAL (09:42)
--- NOTE | 2020-10-08 09:53 | WPDNEURCNPN ---
Assessment and Plan Additional Plan bilateral signs would benefit from the MRI of the brain and cervical spine to rule out the additional possibility of cervical myelopathy Consult date: 10/08/20 Time Seen: 09:30 HPI: Behzad Moon is a 85 year old male admitted to the hospital through the emergency room for complaints of increasing difficulties in breathing EMS were called at home because he was found on the ground in the morning and appeared to have some breathing difficulties he was oriented to person and place but the EMS noted that he had a facial droop along with the slurred speech which according to the disabled son had been going on for at least 1 week he also complained of left leg pain and had wraps on his lower extremities and while in the emergency room he complained of being dizzy he has general hygiene was poor patient does have ongoing history of carcinoma of the lung with the history of having had the radiation treatment but reportedly he had seen the radiologist [facility] oncologist on August 28, 2020 he was found to have leukocytosis with 16.1 contact x-rays the hip and pelvis were normal so as the other x-rays but chest x-ray was with left basilar opacities raising the possibility of cancer and pneumonia patient was noted to have moderate size subacute left parietal lobe infarction on the CT scan of the head in addition to old right carlos lacunar infarction was noted Shefali with slurred speech and difficulties and standing the examiner he did have ongoing history of diabetes mellitus with diastolic congestive heart failure GERD hypertension hyperlipidemia and carcinoma of the lung as mentioned above also supra ventricular tachycardia, patient reportedly former smoker with history of 60 years smoked 120 pack years and former alcohol intake evaluation documented routine his lab mild abnormalities with cervical spine CT scan showing moderate size acute to subacute left parietal lobe infarction and old right carlos lacunar infarction with no evidence of bleed and advanced cervical spondylosis Review of Systems Review of Systems: All systems reviewed & are unremarkable except as noted in HPI and below PMFSH Past Medical History Medical History Diabetes mellitus Diastolic congestive heart failure GERD (gastroesophageal reflux disease) HTN (hypertension), malignant Hyperlipidemia Lung cancer Peripheral artery disease SVT (supraventricular tachycardia) (~2012) Surgical History Surgical History H/O inguinal hernia repair Hx of tonsillectomy Status post peripheral artery angioplasty with insertion of stent superficial femoral artery stent July 2016 Family History Family History Father Acute myocardial infarction Mother Diabetes mellitus Social History Social History Social History: he is a former smoker. He smoked on average 1 pack of cigarettes per day and started when he was 15 years old. He he stopped smoking in 2012. He drank quite heavily when he was in his 30s and 40s but has not drank any alcohol in many years. He has been since October 2019. 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 Primary care physician: Dr. Cristhian Isabel Code status: The patient states that he does not think he would want to have CPR or be intubated. But he is concerned that his son's will not be able to afford to live without him. He states that his son's need is still security in order to support themselves. He does not have a surrogate decision maker or advanced directives in place. it was determined that the patient is a DNR. Smoking packs per day: 2 Smoking cigarettes per day: 40.0 Years smoked: 60 Smoking pack-years: 120.00 Smoking status: Former smoker Tobacco type: cigarettes Alcohol inta
[2020-10-08 11:39] LABS: Glucose Point of Care 183 mg/dl (65-105)
--- NOTE | 2020-10-08 14:02 | PC.NURSE ---
calls placed to both Dr Hussein and Dr Mcfarland's offices for info on stents this pt has in place to confirm if he can have MRI, Dr Mcfarland's office is sending information, info from pt's wallet is complete from Dr Hussein's visits
--- NOTE | 2020-10-08 15:03 | PM.IMPN ---
Progress Note: A&P Assessment and Plan (1) CVA (cerebral vascular accident): Code(s): I63.9 - Cerebral infarction, unspecified Status: Acute Assessment and Plan: CT brainw ith mdoerate sized acute to subsacute left parietal lobe infarction, old right carlos lacular infarctions, cervical spondylosis, age related intracranial findings. brain MRI ordered. neurology on consult. on aspiri 300 mg pr as npo. otherswise on aspirin and plvix. statin. dysphagia PT/OT/ST (2) CAP (community acquired pneumonia): Code(s): J18.9 - Pneumonia, unspecified organism Status: Acute Assessment and Plan: ceftriaxone and azithromycin. leukocytosis he also has recently diagnosed lung cancer (3) HTN (hypertension), malignant: Code(s): I10 - Essential (primary) hypertension Status: Chronic Assessment and Plan: iv prn hydralazine. . npo currently. oral mes when able to take by mouth. (4) Hyperlipidemia: Code(s): E78.5 - Hyperlipidemia, unspecified Status: Chronic Assessment and Plan: If the patient is able to swallow without difficulty we can resume his atorvastatin. (5) Diastolic congestive heart failure: Code(s): I50.30 - Unspecified diastolic (congestive) heart failure Status: Chronic Assessment and Plan: A repeat echo has been ordered for the patient. echo with ef 65-70%, (6) Lung cancer: Code(s): C34.90 - Malignant neoplasm of unspecified part of unspecified bronchus or lung Status: Chronic Assessment and Plan: The patient has been seeing Dr. Osborne for radiation it looks like the patient is in early stages of lung cancer. The patient is listed as a DNR. (7) Status post peripheral artery angioplasty with insertion of stent: Code(s): Z95.820 - Peripheral vascular angioplasty status with implants and grafts Status: Acute Assessment and Plan: The patient has been on aspirin and Plavix but is NPO at this time. (8) Diabetes mellitus with hyperglycemia: Code(s): E11.65 - Type 2 diabetes mellitus with hyperglycemia Status: Acute Assessment and Plan: Accu-Cheks every 6 hours with sliding scale insulin. Check A1c (9) Leg ulcer: Code(s): L97.909 - Non-pressure chronic ulcer of unspecified part of unspecified lower leg with unspecified severity Status: Acute Assessment and Plan: the wraps were removed to the lower extremities. It looks like the patient has some eschar tissue. I did consult wound care in the event that possibly patient would need some santal or further debridement. Unable to do SCDs due to his wounds on his lower extremities. wound care following. Additional Plan prsented with sob, foudn to ahve acute/subacut storke.dysphagia relaeed to abvove on aspirin. needs pt/ot/st. 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 mri ibrain pending neurology on board. Subjective Date/time seen: 10/08/20 15:03 Interval history: patinent verbaliznig and answering questions appropriately. he is not able to give clear history. he is difficult to undersntad due to his left facial droop, which is not clear whetehr its old or new. deniees any sob, chest pain, abdominal pain, nasuea, vomiting. Review of Systems Review of Systems: All systems reviewed & are unremarkable except as noted in HPI and below Constitutional: Constitutional: Reports as per HPI and Reports no additional constitutional complaints Eyes: Eyes: Reports as per HPI and Reports no additional eye complaints ENT: Reports system reviewed and no additional complaints, except as documented and Reports Normal hearing present Cardiovascular: Cardiovascular: Reports no additional cardiovascular complaints Respiratory: Respiratory: Reports no additional respiratory complaints and Reports no additional respiratory complaints Gastrointestinal: Gastr
[2020-10-08] MEDS: SILVERGEL (ELTA) 45 ML 1 APPLIC TOPICAL (17:22)
[2020-10-08 18:10] LABS: Glucose Point of Care 175 mg/dl (65-105)
[2020-10-08 22:03] LABS: Glucose Point of Care 175 mg/dl (65-105)
[2020-10-09] VITALS (9 sets, daily range): BP systolic 142–146; BP diastolic 41–59; PULSE 87–110; RESP 20–24; TEMP 36.4–36.7; O2SAT 92–93
[2020-10-09] MEDS: SODIUM CHLORIDE 0.9% IV 1,000 ML 125 ML IV CONT ×2 (05:41→15:24)
[2020-10-09 05:46] LABS: Glucose Point of Care 162 mg/dl (65-105)
[2020-10-09 05:55] LABS: Basophils Percent Auto 0.1 % (0.2-1.2); Eosinophils Absolute Auto 0.1 K/mm3 (0-0.3); Eosinophils Percent Auto 0.5 % (0-4.4); Hematocrit 26.8 % (42.0-52.0); Hemoglobin 8.8 g/dL (14.0-18.0); Immature Granulocyte Absolute 0.17 K/mm3 (0.00-0.031); Immature Granulocyte Percent A 1.2 % (0-0.5); Lymphocytes Absolute Auto 0.98 K/mm3 (0.9-3.2); Lymphocytes Percent Auto 6.7 % (18.3-44.2); Mean Corpuscular HGB Conc 32.8 g/dl (32-36); Mean Corpuscular Hemoglobin 28.2 pg (26-34); Mean Corpuscular Volume 85.9 fl (80-100); Mean Platelet Volume 10.5 fl (7.4-10.4); Monocytes Absolute Auto 0.9 K/mm3 (0.1-0.6); Monocytes Percent Auto 6.2 % (2.6-8.5); Neutrophils Absolute Auto 12.4 K/mm3 (1.3-6.7); Neutrophils Percent Auto 85.3 % (45.5-73.1); Platelet Count Result 266 k/mm3 (150-375); Red Blood Count 3.12 M/mm3 (4.6-6.20); Red Cell Distribution Width 14.2 % (11.5-14.5); White Blood Count 14.6 K/mm3 (4.5-10.0)
[2020-10-09 06:04] LABS: Anion Gap 9 mmol/L (8-16); Blood Urea Nitrogen 8 mg/dL (9-20); Calcium 7.5 mg/dL (8.4-10.2); Carbon Dioxide 23 mmol/L (22-30); Chloride 104 mmol/L (98-107); Cholesterol 70 mg/dL (0-200); Estimated CRCL calculation 88 ml/min; Estimated Glomerular Filt Rate > 60; Glucose 154 mg/dL (75-110); HDL Direct 20 mg/dL; Potassium 3.3 mmol/L (3.4-5.0); Sodium 136 mmol/L (137-145); Triglycerides 69 mg/dL (<150)
[2020-10-09 06:15] LABS: LDL Cholesterol Direct 31 mg/dL
[2020-10-09] MEDS: SILVERGEL (ELTA) 45 ML 1 APPLIC TOPICAL (10:07)
[2020-10-09] MEDS: ASPIRIN 300 MG SUPPOSITORY RECTAL (10:07)
[2020-10-09 11:39] LABS: Glucose Point of Care 179 mg/dl (65-105)
--- NOTE | 2020-10-09 15:29 | PM.IMPN ---
Progress Note: A&P Assessment and Plan (1) CVA (cerebral vascular accident): Code(s): I63.9 - Cerebral infarction, unspecified Status: Acute Assessment and Plan: CT brainw ith mdoerate sized acute to subsacute left parietal lobe infarction, old right carlos lacular infarctions, cervical spondylosis, age related intracranial findings. brain MRI ordered. neurology on consult. on aspiri 300 mg pr as npo. otherswise on aspirin and plvix. statin. dysphagia PT/OT/ST prsented with sob, foudn to ahve acute/subacut storke.dysphagia related to above, patient on aspirin. needs pt/ot/st. 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 However MRI did not show any acute injury patient will be seen by Neurology and further recommendation to follow will continue PT OT ST, as patient's symptoms improved will do the discharge plan. (2) CAP (community acquired pneumonia): Code(s): J18.9 - Pneumonia, unspecified organism Status: Acute Assessment and Plan: ceftriaxone and azithromycin. leukocytosis he also has recently diagnosed lung cancer (3) HTN (hypertension), malignant: Code(s): I10 - Essential (primary) hypertension Status: Chronic Assessment and Plan: iv prn hydralazine. . npo currently. oral mes when able to take by mouth. (4) Hyperlipidemia: Code(s): E78.5 - Hyperlipidemia, unspecified Status: Chronic Assessment and Plan: If the patient is able to swallow without difficulty we can resume his atorvastatin. (5) Diastolic congestive heart failure: Code(s): I50.30 - Unspecified diastolic (congestive) heart failure Status: Chronic Assessment and Plan: A repeat echo has been ordered for the patient. echo with ef 65-70%, (6) Lung cancer: Code(s): C34.90 - Malignant neoplasm of unspecified part of unspecified bronchus or lung Status: Chronic Assessment and Plan: The patient has been seeing Dr. Osborne for radiation it looks like the patient is in early stages of lung cancer. The patient is listed as a DNR. (7) Status post peripheral artery angioplasty with insertion of stent: Code(s): Z95.820 - Peripheral vascular angioplasty status with implants and grafts Status: Acute Assessment and Plan: The patient has been on aspirin and Plavix but is NPO at this time. (8) Diabetes mellitus with hyperglycemia: Code(s): E11.65 - Type 2 diabetes mellitus with hyperglycemia Status: Acute Assessment and Plan: Accu-Cheks every 6 hours with sliding scale insulin. Check A1c (9) Leg ulcer: Code(s): L97.909 - Non-pressure chronic ulcer of unspecified part of unspecified lower leg with unspecified severity Status: Acute Assessment and Plan: the wraps were removed to the lower extremities. It looks like the patient has some eschar tissue. I did consult wound care in the event that possibly patient would need some santal or further debridement. Unable to do SCDs due to his wounds on his lower extremities. wound care following. Additional Plan prsented with sob, foudn to sean acute/subacut storke.dysphagia relaeed to abvove on aspirin. needs pt/ot/st. 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 mri ibrain pending neurology on board. Subjective Date/time seen: 10/09/20 15:29 Interval history: patinent verbaliznig and answering questions appropriately. he is not able to give clear history. he is difficult to undersntad due to his left facial droop, which is not clear whetehr its old or new. deniees any sob, chest pain, abdominal pain, nasuea, vomiting. prsented with sob, foudn to ahve acute/subacut storke.dysphagia related to above, patient on aspirin. needs pt/ot/st. 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 However MRI d
[2020-10-09 17:30] LABS: Glucose Point of Care 175 mg/dl (65-105)
[2020-10-10] VITALS (11 sets, daily range): BP systolic 143–158; BP diastolic 52–70; PULSE 87–102; RESP 18–26; TEMP 36.3–36.9; O2SAT 92–96
[2020-10-10 00:12] LABS: Glucose Point of Care 154 mg/dl (65-105)
[2020-10-10] MEDS: SODIUM CHLORIDE 0.9% IV 1,000 ML 125 ML IV CONT ×3 (05:05→22:42)
[2020-10-10 06:00] LABS: Glucose Point of Care 138 mg/dl (65-105)
[2020-10-10 09:01] LABS: Hematocrit 29.7 % (42.0-52.0); Hemoglobin 9.4 g/dL (14.0-18.0); Mean Corpuscular HGB Conc 31.6 g/dl (32-36); Mean Corpuscular Hemoglobin 28.1 pg (26-34); Mean Corpuscular Volume 88.9 fl (80-100); Mean Platelet Volume 10.2 fl (7.4-10.4); Platelet Count Result 274 k/mm3 (150-375); Red Blood Count 3.34 M/mm3 (4.6-6.20); Red Cell Distribution Width 14.2 % (11.5-14.5)
[2020-10-10 09:13] LABS: Anion Gap 12 mmol/L (8-16); Blood Urea Nitrogen 8 mg/dL (9-20); Calcium 7.6 mg/dL (8.4-10.2); Carbon Dioxide 22 mmol/L (22-30); Chloride 104 mmol/L (98-107); Estimated CRCL calculation 107 ml/min; Estimated Glomerular Filt Rate > 60; Glucose 153 mg/dL (75-110); Potassium 3.1 mmol/L (3.4-5.0); Sodium 138 mmol/L (137-145)
[2020-10-10] MEDS: ASPIRIN 300 MG SUPPOSITORY RECTAL (09:37)
[2020-10-10] MEDS: SILVERGEL (ELTA) 45 ML 1 APPLIC TOPICAL (09:38)
[2020-10-10 11:49] LABS: Glucose Point of Care 186 mg/dl (65-105)
--- NOTE | 2020-10-10 11:55 | WPDNEUROPN ---
Progress Note: A&P Assessment and Plan (1) Acute CVA (cerebrovascular accident): Code(s): I63.9 - Cerebral infarction, unspecified Status: Acute Additional Plan multiple medical problems, recent history of carcinoma of the lung now with superimposed left hemispheric stroke will need supportive care and the medication as such Review of Systems Review of Systems: All systems reviewed & are unremarkable except as noted in HPI and below Exam Const: General: confusion, ill appearing and patient obtunded Nutritional Appearance: malnourished Orientation/consciousness: oriented to place Limitations: behavioral limitations and physical limitations HENMT: Head: normal to inspection General nose exam: Normal external nose present Face and sinus: face symmetric ( asymmetric) Mouth: Yes Normal oral and palatal mucosa present Eyes: General: appearance normal, both eyes and all related structures Visual Urrutia: abnormal by confrontation Alignment and Position: alignment normal Eyelids: eyelids normal Conjunctivae: conjunctivae normal Sclera: sclerae normal Cornea: corneas normal EOM: movement deficit Neck: Neck: full ROM Resp: Auscultation: clear to auscultation bilaterally Neuro: Cranial nerves: Yes Nystagmus not present and Yes facial symmetry ( asymmetric) Cognition (Neuro): abnormal cognition Speech: Abnormal speech present Gait exam (Neuro): Unable to assess gait Sensory Exam: Sensory deficit (Neuro) Deep tendon reflexes (DTR's): Right triceps reflex intensity grade: 2+, Left triceps reflex intensity grade: 1+, Rt Biceps (C5, C6): 2+, Left biceps reflex intensity grade: 1+, Right brachioradialis reflex intensity grade: 2+, Left brachioradialis reflex intensity grade: 1+, Right patellar reflex intensity grade: 2+, Left patellar reflex intensity grade: 1+, Right ankle reflex intensity grade: 2+ and Left ankle reflex intensity grade: 1+ Plantar Reflex Responses: upgoing (positive Babinski): right and equivocal: left Objective Data Vital Signs Vital Signs: Vital Signs - 24 hr 10/09/20 12:00 10/09/20 14:00 10/09/20 20:00 Temperature 36.4 C Pulse Rate 99 96 110 H Respiratory Rate 22 H Blood Pressure 143/50 H Pulse Oximetry 93 10/09/20 20:35 10/09/20 23:00 10/10/20 00:00 Temperature 36.7 C Pulse Rate 104 H 96 Respiratory Rate 20 Blood Pressure 142/59 H Pulse Oximetry 93 93 10/10/20 04:00 10/10/20 05:23 10/10/20 08:00 Temperature 36.3 C L Pulse Rate 97 92 102 H Respiratory Rate 18 Blood Pressure 143/53 H Pulse Oximetry 95 Intake/Output Intake/Output: Intake & Output 10/07/20 10/08/20 10/09/20 10/10/20 23:59 23:59 23:59 23:59 Intake Total 500 3150 2550 1000 Output Total 1000 300 Balance 500 2150 2250 1000 Meds/Results Medications: Active Medications Generic Name Dose Route Start Last Admin Trade Name Freq PRN Reason Stop Dose Admin Aspirin 300 mg 10/08/20 09:00 10/10/20 09:37 Aspirin 300 Mg Suppository RECTAL 300 mg DAILY CRISTAL Administration Hydralazine HCl 10 mg 10/07/20 17:44 Hydralazine Hcl 20 Mg/Ml Vial IV PUSH Q8H PRN Blood Pressure - High Sodium Chloride 1,000 mls @ 125 mls/hr 10/07/20 14:35 10/10/20 05:05 Normal Saline Iv IV CONT 125 mls/hr .Q8H CRISTAL Administration Ceftriaxone Sodium/Dextrose 1 gm in 50 mls @ 100 mls/hr 10/08/20 09:00 10/10/20 09:37 Rocephin 1 Gm/D5w 50 Ml IVPB 100 mls/hr Q24H CRISTAL Administration Azithromycin 500 mg in 250 mls @ 250 mls/hr 10/08/20 12:00 10/09/20 14:00 Zithromax IVPB Infused Q24H CRISTAL Infusion Lidocaine 2 patch 10/10/20 11:05 Lidocaine 5% Patch TRANSDERM DAILY CRISTAL Miconazole Nitrate 1 applic 10/08/20 09:00 10/10/20 09:38 Miconazole 2% Antifungal Ointment 56 Gm TOPICAL 1 applic Q12HR CRISTAL Administration Silver Nitrate 1 applic 10/08/20 09:00 10/10/20 09:38 Silvergel (Elta) 45 Ml TOPICAL 1 applic DAILY [facility] Administrati
[2020-10-10] MEDS: LIDOCAINE 5% PATCH 2 PATCH TRANSDERM (12:59)
--- NOTE | 2020-10-10 15:07 | PM.IMPN ---
Progress Note: A&P Assessment and Plan (1) CVA (cerebral vascular accident): Code(s): I63.9 - Cerebral infarction, unspecified Status: Acute Assessment and Plan: CT brainw ith mdoerate sized acute to subsacute left parietal lobe infarction, old right carlos lacular infarctions, cervical spondylosis, age related intracranial findings. brain MRI ordered. neurology on consult. on aspiri 300 mg pr as npo. otherswise on aspirin and plvix. statin. dysphagia PT/OT/ST prsented with sob, foudn to ahve acute/subacut storke.dysphagia related to above, patient on aspirin. needs pt/ot/st. 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 However MRI did not show any acute injury patient will be seen by Neurology and further recommendation to follow will continue PT OT ST, as patient's symptoms improved will do the discharge plan. 10/10/20 15:07 Patient with a chronic medical problems including lung carcinoma presented with slurred speech seen by neurology had a MRI which showed 1. Acute infarct involving the left frontal, parietal, and temporal lobes. 2. Old infarct in the carlos. Carotid ultrasound did not show any stenosis and cardiac echo is essentially normal, neurologist recommending continue PT OT patient will benefit from acute rehab, and further recommendation to follow (2) CAP (community acquired pneumonia): Code(s): J18.9 - Pneumonia, unspecified organism Status: Acute Assessment and Plan: ceftriaxone and azithromycin. leukocytosis he also has recently diagnosed lung cancer (3) HTN (hypertension), malignant: Code(s): I10 - Essential (primary) hypertension Status: Chronic Assessment and Plan: iv prn hydralazine. . npo currently. oral mes when able to take by mouth. (4) Hyperlipidemia: Code(s): E78.5 - Hyperlipidemia, unspecified Status: Chronic Assessment and Plan: If the patient is able to swallow without difficulty we can resume his atorvastatin. (5) Diastolic congestive heart failure: Code(s): I50.30 - Unspecified diastolic (congestive) heart failure Status: Chronic Assessment and Plan: A repeat echo has been ordered for the patient. echo with ef 65-70%, (6) Lung cancer: Code(s): C34.90 - Malignant neoplasm of unspecified part of unspecified bronchus or lung Status: Chronic Assessment and Plan: The patient has been seeing Dr. Osborne for radiation it looks like the patient is in early stages of lung cancer. The patient is listed as a DNR. (7) Status post peripheral artery angioplasty with insertion of stent: Code(s): Z95.820 - Peripheral vascular angioplasty status with implants and grafts Status: Acute Assessment and Plan: The patient has been on aspirin and Plavix but is NPO at this time. (8) Diabetes mellitus with hyperglycemia: Code(s): E11.65 - Type 2 diabetes mellitus with hyperglycemia Status: Acute Assessment and Plan: Accu-Cheks every 6 hours with sliding scale insulin. Check A1c (9) Leg ulcer: Code(s): L97.909 - Non-pressure chronic ulcer of unspecified part of unspecified lower leg with unspecified severity Status: Acute Assessment and Plan: the wraps were removed to the lower extremities. It looks like the patient has some eschar tissue. I did consult wound care in the event that possibly patient would need some santal or further debridement. Unable to do SCDs due to his wounds on his lower extremities. wound care following. Additional Plan prsented with sob, foudn to ahve acute/subacut storke.dysphagia relaeed to abvove on aspirin. needs pt/ot/st. 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 mri [place]rain pending neurology on board. Subjective Date/time seen: 10/10/20 15:07 Patient with a chronic medical problems including lung
[2020-10-10 17:17] LABS: Glucose Point of Care 166 mg/dl (65-105)
[2020-10-10 22:54] LABS: Glucose Point of Care 145 mg/dl (65-105)
[2020-10-11] VITALS (16 sets, daily range): BP systolic 140–160; BP diastolic 56–60; PULSE 87–108; RESP 18–24; TEMP 35.9–36.8; O2SAT 87–98
[2020-10-11] MEDS: HYDROmorphone HCL INJ (*CRX) 1 MG/ML SYR IV PUSH (04:54)
--- NOTE | 2020-10-11 04:55 | PC.NURSE ---
Addendum entered by Kaylah Dickey RN 10/11/20 06:36: Per TRAVELING SALES EXECUTIVE pt is good as long as he stays at 90% sats Original Note: Called TRAVELING SALES EXECUTIVE about pts sats dropping to low 80s throughout the night even with staff bumping his O2 up to 4L. TRAVELING SALES EXECUTIVE placed pt on highflow NC at 10L and requested MD be updated on change in O2 sats/delivery.
[2020-10-11] MEDS: SODIUM CHLORIDE 0.9% IV 1,000 ML 125 ML IV CONT ×2 (06:33→16:56)
[2020-10-11 06:39] LABS: Glucose Point of Care 152 mg/dl (65-105)
--- NOTE | 2020-10-11 07:42 | PC.NURSE ---
SELAM informed this nurse that the patient was having some shortness of breath, pulse ox reading 74%. Patient was instructed to take deep breaths through his nose with no comprehension. Called respiratory therapist to place PRN BiPAP machine at this time. This nurse called Dr. Kulkarni and informed Dr. Kulkarni that the patient is being started on BiPAP at this time. Per Dr. Kulkarni order ABG's on the patient in 2 hours after being started on BiPAP.
[2020-10-11] MEDS: LIDOCAINE 5% PATCH 2 PATCH TRANSDERM (08:22)
[2020-10-11] MEDS: ASPIRIN 300 MG SUPPOSITORY RECTAL (08:23)
[2020-10-11] MEDS: SILVERGEL (ELTA) 45 ML 1 APPLIC TOPICAL (08:23)
--- NOTE | 2020-10-11 09:10 | PCSTNOTE ---
Attempted to perform MBS; however, was informed by xray that pt's test is on hold due to decline in medical status.
[2020-10-11 10:01] LABS: Base Excess ABG 0.1 mEq/l (+/-2.0); Fractional Inspired Oxygen 70 %; Oxygen Content ABG 15.4 %vol (16.0-22.0); Oxygen Saturation ABG 95.9 % (95.0-100.0); Oxyhemoglobin 93.9 % THb (90.0-100.0); PCO2 ABG 36.3 mmHg (35.0-45.0); PO2 ABG 77.1 mmHg (80.0-100.0); Total Hemoglobin 11.6 g/dL (12.0-18.0); pH ABG 7.438 (7.350-7.450)
[2020-10-11 10:02] LABS: Device BIPAP; Modified Allen's Test Pass; Site Drawn LEFT RADIAL
[2020-10-11 10:03] LABS: Expiratory Pressure 8 cmH2O; Inspiratory Pressure 14 cmH2O
[2020-10-11 12:20] LABS: Glucose Point of Care 163 mg/dl (65-105)
[2020-10-11 12:57] LABS: Base Excess ABG 0.8 mEq/l (+/-2.0); Fractional Inspired Oxygen 100 %; HCO3 ABG 24.9 mEq/l (22.0-26.0); Oxygen Content ABG 16.1 %vol (16.0-22.0); Oxygen Saturation ABG 99.7 % (95.0-100.0); Oxyhemoglobin 98.3 % THb (90.0-100.0); PO2 FiO2 Ratio Arterial Blood 3.02 %; Total Hemoglobin 11.1 g/dL (12.0-18.0); pH ABG 7.435 (7.350-7.450)
[2020-10-11 12:58] LABS: Device BIPAP; Modified Allen's Test Pass; Site Drawn LEFT RADIAL
[2020-10-11 12:59] LABS: Expiratory Pressure 8 cmH2O; Inspiratory Pressure 14 cmH2O
--- NOTE | 2020-10-11 13:24 | PCPTNOTE ---
Attempted to see patient for PT, unable to see patient for therapy today. Per nursing: hold on PT today due to patient on continuous biPAP. Will continue with PT at later date.
--- NOTE | 2020-10-11 15:41 | PM.IMPN ---
Progress Note: A&P Assessment and Plan (1) CVA (cerebral vascular accident): Code(s): I63.9 - Cerebral infarction, unspecified Status: Acute Assessment and Plan: CT brainw ith mdoerate sized acute to subsacute left parietal lobe infarction, old right carlos lacular infarctions, cervical spondylosis, age related intracranial findings. brain MRI ordered. neurology on consult. on aspiri 300 mg pr as npo. otherswise on aspirin and plvix. statin. dysphagia PT/OT/ST 10/11/20 15:41 prsented with sob, foudn to ahve acute/subacut storke.dysphagia related to above, patient on aspirin. needs pt/ot/st. 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 However MRI did not show any acute injury patient will be seen by Neurology and further recommendation to follow will continue PT OT ST, as patient's symptoms improved will do the discharge plan. 10/10 Patient with a chronic medical problems including lung carcinoma presented with slurred speech seen by neurology had a MRI which showed 1. Acute infarct involving the left frontal, parietal, and temporal lobes. 2. Old infarct in the carlos. Carotid ultrasound did not show any stenosis and cardiac echo is essentially normal, neurologist recommending continue PT OT patient will benefit from acute rehab, and further recommendation to follow. 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 (2) CAP (community acquired pneumonia): Code(s): J18.9 - Pneumonia, unspecified organism Status: Acute Assessment and Plan: ceftriaxone and azithromycin. leukocytosis he also has recently diagnosed lung cancer (3) HTN (hypertension), malignant: Code(s): I10 - Essential (primary) hypertension Status: Chronic Assessment and Plan: iv prn hydralazine. . npo currently. oral mes when able to take by mouth. (4) Hyperlipidemia: Code(s): E78.5 - Hyperlipidemia, unspecified Status: Chronic Assessment and Plan: If the patient is able to swallow without difficulty we can resume his atorvastatin. (5) Diastolic congestive heart failure: Code(s): I50.30 - Unspecified diastolic (congestive) heart failure Status: Chronic Assessment and Plan: A repeat echo has been ordered for the patient. echo with ef 65-70%, (6) Lung cancer: Code(s): C34.90 - Malignant neoplasm of unspecified part of unspecified bronchus or lung Status: Chronic Assessment and Plan: The patient has been seeing Dr. Osborne for radiation it looks like the patient is in early stages of lung cancer. The patient is listed as a DNR. (7) Status post peripheral artery angioplasty with insertion of stent: Code(s): Z95.820 - Peripheral vascular angioplasty status with implants and grafts Status: Acute Assessment and Plan: The patient has been on aspirin and Plavix but is NPO at this time. (8) Diabetes mellitus with hyperglycemia: Code(s): E11.65 - Type 2 diabetes mellitus with hyperglycemia Status: Acute Assessment and Plan: Accu-Cheks every 6 hours with sliding scale insulin. Check A1c (9) Leg ulcer: Code(s): L97.909 - Non-pressure chronic ulcer of unspecified part of unspecified lower leg with unspecified severity Status: Acute Assessment and Plan: the wraps were removed to the lower extremities. It looks like the patient has some eschar tissue. I did cons
--- NOTE | 2020-10-11 16:21 | PCSTNOTE ---
The patient treatment was not able to be completed on 10/11 due to patient's current condition. Will plan to continue treatment per plan of care tomorrow if able
[2020-10-11 17:30] LABS: Glucose Point of Care 179 mg/dl (65-105)
[2020-10-12] VITALS (12 sets, daily range): BP systolic 137–158; BP diastolic 61–78; PULSE 78–90; RESP 18–21; TEMP 35.8–36.4; O2SAT 92–97
[2020-10-12 00:49] LABS: Glucose Point of Care 142 mg/dl (65-105)
[2020-10-12] MEDS: SODIUM CHLORIDE 0.9% IV 1,000 ML 125 ML IV CONT ×2 (00:56→09:25)
[2020-10-12 06:39] LABS: Glucose Point of Care 150 mg/dl (65-105)
--- NOTE | 2020-10-12 07:59 | PCSTNOTE ---
Spoke with RN regarding completing MBS ordered for yesterday; she stated there is a meeting today with the pt's family re how they wish to proceed with his care. She stated she would contact ST later today after said meeting. No MBS until then per RN.
[2020-10-12] MEDS: ASPIRIN 300 MG SUPPOSITORY RECTAL (09:25)
[2020-10-12] MEDS: SILVERGEL (ELTA) 45 ML 1 APPLIC TOPICAL (09:26)
[2020-10-12] MEDS: LIDOCAINE 5% PATCH 2 PATCH TRANSDERM (09:26)
--- NOTE | 2020-10-12 10:30 | PCOTNOTE ---
The patient treatment was not able to be completed this date due to status change and RN reporting to hold therapy. Per RN, pt's left lung collapsed and may be starting hospice care. Will plan to continue treatment per plan of care accordingly.
--- NOTE | 2020-10-12 10:43 | PCPTNOTE ---
The patient's PT treatment was unable to be completed this date due to status change and RN reported to hold therapy.
[2020-10-12 12:05] LABS: Glucose Point of Care 154 mg/dl (65-105)
--- NOTE | 2020-10-12 13:11 | PC.NURSE ---
On 10/12/20, the student, [ Anuja Baca], provided care and completed [facility] documentation on this patient. I have reviewed the student's documentation and agree with the findings.
--- NOTE | 2020-10-12 14:08 | PCDIET ---
Dietitian Screen for NPO x 5 days. Plans for patient to discharge with Hospice. No further nutritional interventions needed at this time.
--- NOTE | 2020-10-12 15:22 | PCSTNOTE ---
Therapist spoke with nurse who stated that patient will be transitioning to comfort care and no longer requires direct ST. He is being removed from caseload this date.
--- NOTE | 2020-10-12 15:40 | PC.NURSE ---
On 10/12/20, the student, [Alton Mena], provided care and completed [facility] documentation on this patient. I have reviewed the student's documentation and agree with the findings.
--- NOTE | 2020-10-13 09:30 | P.DS_ITS ---
DS: Admitting Diagnosis Admitting Diagnosis Admitting Diagnosis: Chief Complaint: Confusion and fall DS: Discharge Diagnosis Discharge Diagnosis (1) CVA (cerebral vascular accident): Code(s): I63.9 - Cerebral infarction, unspecified Status: Acute Assessment and Plan: CT brainw ith mdoerate sized acute to subsacute left parietal lobe infarction, old right carlos lacular infarctions, cervical spondylosis, age related intracranial findings. brain MRI ordered. neurology on consult. on aspiri 300 mg pr as npo. otherswise on aspirin and plvix. statin. dysphagia PT/OT/ST 10/12/2020 prsented with sob, foudn to ahve acute/subacut storke.dysphagia related to above, patient on aspirin. needs pt/ot/st. 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 However MRI did not show any acute injury patient will be seen by Neurology and further recommendation to follow will continue PT OT ST, as patient's symptoms improved will do the discharge plan. 10/10 Patient with a chronic medical problems including lung carcinoma presented with slurred speech seen by neurology had a MRI which showed 1. Acute infarct involving the left frontal, parietal, and temporal lobes. 2. Old infarct in the carlos. Carotid ultrasound did not show any stenosis and cardiac echo is essentially normal, neurologist recommending continue PT OT patient will benefit from acute rehab, and further recommendation to follow. 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 leukocytosis he also has recently diagnosed lung cancer (3) HTN (hypertension), malignant: Code(s): I10 - Essential (primary) hypertension Status: Chronic Assessment and Plan: iv prn hydralazine. . npo currently. oral mes when able to take by mouth. (4) Hyperlipidemia: Code(s): E78.5 - Hyperlipidemia, unspecified Status: Chronic Assessment and Plan: If the patient is able to swallow without difficulty we can resume his atorvastatin. (5) Diastolic congestive heart failure: Qualifiers: Heart failure chronicity: chronic Qualified Code(s): I50.32 - Chronic diastolic (congestive) heart failure Code(s): I50.30 - Unspecified diastolic (congestive) heart failure Status: Chronic Assessment and Plan: A repeat echo has been ordered for the patient. echo with ef 65-70%, (6) Lung cancer: Code(s): C34.90 - Malignant neoplasm of unspecified part of unspecified bronchus or lung Status: Chronic Assessment and Plan: The patient has been seeing Dr. Osborne for radiation it looks like the patient is in early stages of lung cancer. The patient is listed as a DNR. (7) Status post peripheral ar
--- NOTE | 2020-10-27 15:46 | PM.IMPN ---
Progress Note: A&P Assessment and Plan (1) CVA (cerebral vascular accident): Code(s): I63.9 - Cerebral infarction, unspecified Status: Acute Assessment and Plan: CT brainw ith mdoerate sized acute to subsacute left parietal lobe infarction, old right carlos lacular infarctions, cervical spondylosis, age related intracranial findings. brain MRI ordered. neurology on consult. on aspiri 300 mg pr as npo. otherswise on aspirin and plvix. statin. dysphagia PT/OT/ST 10/12/2020 prsented with sob, foudn to ahve acute/subacut storke.dysphagia related to above, patient on aspirin. needs pt/ot/st. 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 However MRI did not show any acute injury patient will be seen by Neurology and further recommendation to follow will continue PT OT ST, as patient's symptoms improved will do the discharge plan. 10/10 Patient with a chronic medical problems including lung carcinoma presented with slurred speech seen by neurology had a MRI which showed 1. Acute infarct involving the left frontal, parietal, and temporal lobes. 2. Old infarct in the carlos. Carotid ultrasound did not show any stenosis and cardiac echo is essentially normal, neurologist recommending continue PT OT patient will benefit from acute rehab, and further recommendation to follow. 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 leukocytosis he also has recently diagnosed lung cancer (3) HTN (hypertension), malignant: Code(s): I10 - Essential (primary) hypertension Status: Chronic Assessment and Plan: iv prn hydralazine. . npo currently. oral mes when able to take by mouth. (4) Hyperlipidemia: Code(s): E78.5 - Hyperlipidemia, unspecified Status: Chronic Assessment and Plan: If the patient is able to swallow without difficulty we can resume his atorvastatin. (5) Diastolic congestive heart failure: Qualifiers: Heart failure chronicity: chronic Qualified Code(s): I50.32 - Chronic diastolic (congestive) heart failure Code(s): I50.30 - Unspecified diastolic (congestive) heart failure Status: Chronic Assessment and Plan: A repeat echo has been ordered for the patient. echo with ef 65-70%, (6) Lung cancer: Code(s): C34.90 - Malignant neoplasm of unspecified part of unspecified bronchus or lung Status: Chronic Assessment and Plan: The patient has been seeing Dr. Osborne for radiation it looks like the patient is in early stages of lung cancer. The patient is listed as a DNR. (7) Status post peripheral artery angioplasty with insertion of stent: Code(s): Z95.820 - Peripheral vascular angioplasty status with implants and grafts Status: Acute Assessment and Plan: The patient has been on aspirin and Plavix but is NPO at this time. (8) Diabetes mellitus with hyperglycemia: Qualifiers: Diabetes mellitus type: type 2 Diabetes mellitus long term care social worker insulin use: without correction use Qualified Code(s): E11.65 - Typ
== END 2020-10-12 15:44 | disposition hospice, home (50) | DRG 64 ==
LOC: ANHED 16:49 → ANH3MED 19:27
PROVIDERS: Family Medicine; Nurse Practitioner; Admitting Provider Family Medicine; Emergency Provider General Practice; PCP Family Medicine Adolescent Medicine; Visit Provider Internal Medicine
DX: I63.9 Cerebral infarction, unspecified (principal); J18.9 Pneumonia, unspecified organism; I50.32 Chronic diastolic (congestive) heart failure; C34.90 Malignant neoplasm of unspecified part of unspecified bronchus or lung; L97.829 Non-pressure chronic ulcer of other part of left lower leg with unspecified severity; L97.819 Non-pressure chronic ulcer of other part of right lower leg with unspecified severity; I11.0 Hypertensive heart disease with heart failure; R13.10 Dysphagia, unspecified; E78.5 Hyperlipidemia, unspecified; E11.65 Type 2 diabetes mellitus with hyperglycemia; R29.810 Facial weakness; R47.81 Slurred speech; K21.9 Gastro-esophageal reflux disease without esophagitis; E11.51 Type 2 diabetes mellitus with diabetic peripheral angiopathy without gangrene; I73.9 Peripheral vascular disease, unspecified; Z66 Do not resuscitate; Z95.820 Peripheral vascular angioplasty status with implants and grafts; Z87.891 Personal history of nicotine dependence
CPT/HCPCS: 36415; 36600; 51701; 70450; 70553; 71045; 72125; 73502; 73564; 73610; 80048; 80053; 80061; 80307; 81001; 82140; 82550; 82805; 82948; 83036; 83605; 83735; 84443; 84484; 85025; 85027; 85610; 85730; 87040; 92526; 92610; 93005; 93306; 93880; 94003; 96365; 96366; 96367; 97110; 97161; 97166; 97530; 99285; A9270; A9577; J0131; J0456; J0696; J1170; J7030

== ENCOUNTER 2020-10-12 16:00 | HOS | payer OTHER, SELFPAY ==
[2020-10-12 16:44] VITALS: BMI 21.6
[2020-10-12] MEDS: MORPHINE SULFATE INJ (*CRX) 50 MG in SODIUM CHLORIDE 0.9% IV 95 ML IV CONT (18:56)
[2020-10-12] MEDS: GLYCOPYRROLATE INJ (*SP) 0.2 MG/ML VIAL 0.1 MG IV PUSH (19:01)
[2020-10-12 20:00] VITALS: PULSE 71; RESP 18; O2SAT 93
[2020-10-12 20:59] VITALS: BP 149/54; PULSE 71; RESP 18; TEMP 36.1; O2SAT 99
[2020-10-13 08:58] VITALS: BP 148/58; PULSE 97; RESP 20; TEMP 36.7; O2SAT 94
--- NOTE | 2020-10-13 13:34 | PM.IMHP ---
H&P: HPI History of Present Illness Date/Time: 10/13/20 13:34 Chief Complaint: Right-sided weakness and difficulty eating and talking Narrative: 85-year-old gentleman with severe peripheral vascular disease since at leg ulcers on the left lower extremity for about 3 months. His activity level has declined over the last 3 months. He has been sleeping in a recliner due to discomfort. He was admitted to acute care on October 07 due to acute stroke. He had an old stroke in the carlos as bill by MRI. He had a new acute stroke in the left frontal parietal and temporal region in the distribution of the left middle cerebral artery. He has had difficulty eating and speaking since the stroke. Speech is become a little better. He is more alert. He is able to eat small bites with some choking. He is not able to ambulate or get out of bed on his own. He is able to make his needs known by just a chelating and speaking With moderately severe dysarthria. He does complain of left lower extremity discomfort that is moderately severe in spite of the continuous morphine infusion at 0.5 milligram/hour since yesterday afternoon. He slept poorly last night he believes in part due to pain and in part due to anxiety. Review of Systems Review of Systems: ROS unobtainable: Yes unobtainable due to medical condition PMFSH Past Medical History Medical History Diabetes mellitus Diastolic congestive heart failure GERD (gastroesophageal reflux disease) HTN (hypertension), malignant Hyperlipidemia Lung cancer Peripheral artery disease SVT (supraventricular tachycardia) (~2012) Surgical History Surgical History H/O inguinal hernia repair Hx of tonsillectomy Status post peripheral artery angioplasty with insertion of stent superficial femoral artery stent July 2016 Family History Family History Father Acute myocardial infarction Mother Diabetes mellitus Social History Social History (Updated 10/13/20 @ 13:35 by Sanju Maharaj MD) Social History: Former smoker. He smoked on average 1 pack of cigarettes per day and started when he was 15 years old. He he stopped smoking in 2012. He drank quite heavily when he was in his 30s and 40s but has not drunk any alcohol in many years. He has been since October 2019. 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 Primary care physician: Dr. Cristhian Isabel Code status: DNR Smoking packs per day: 2 Smoking cigarettes per day: 40.0 Years smoked: 60 Smoking pack-years: 120.00 Smoking status: Former smoker Tobacco type: cigarettes Alcohol intake: former Substance use type: does not use Gender identity (if verbalized by the patient): Male Spiritual care concerns: No Meds Home Medications and Allergies Home Medications Medication Instructions Recorded Confirmed Type amlodipine 10 mg PO HS 01/21/20 10/12/20 History gabapentin 300 mg PO BID 01/21/20 10/12/20 History metformin 1,000 mg PO BID 01/21/20 10/12/20 History pantoprazole 40 mg PO DAILY PRN 01/21/20 10/12/20 History aspirin [Adult Aspirin Regimen] 81 mg PO DAILY #30 tablet 01/24/20 10/12/20 Rx atorvastatin 40 mg PO DAILY #30 tablet 01/24/20 10/12/20 Rx clopidogrel 75 mg PO DAILY #30 tablet 01/24/20 10/12/20 Rx metoprolol tartrate 50 mg PO BID #60 tablet 01/24/20 10/12/20 Rx silver [Silver-Sept] 1 applic TOPICAL DAILY #45 gm 01/24/20 10/12/20 Rx hydrocodone-acetaminophen [[place]] 1 tablet PO Q4H PRN 02/21/20 10/12/20 History Allergies Allergy/AdvReac Type Severity Reaction Status Date / Time No Known Allergies Allergy Unknown Verified 10/07/20 17:54 Vital Signs Vital Signs - 24 hr 10/12/20 20:00 10/12/20 20:59 10/13/20 08:58 Temperature 97 F L 98.1 F Pulse Rate 71 71 97 Respiratory Rate 18 18 20 Blood P
[2020-10-13] MEDS: MORPHINE SULFATE (*CRX) 2 MG/ML INJ IV PUSH (15:04)
[2020-10-13] MEDS: ACETAMINOPHEN ELIXIR 325 MG/10.15 ML UDC 650 MG PO ×2 (18:08→21:10)
[2020-10-13] MEDS: MORPHINE SULFATE INJ (*CRX) 50 MG in SODIUM CHLORIDE 0.9% IV 95 ML IV CONT (18:08)
[2020-10-13 20:00] VITALS: BP 159/60; PULSE 98; RESP 18; TEMP 35.9; O2SAT 94
[2020-10-13 21:10] VITALS: PULSE 98; RESP 18; O2SAT 94
[2020-10-13] MEDS: MELATONIN 5 MG TABLET PO (21:10)
[2020-10-14 08:00] VITALS: BP 139/47; PULSE 89; RESP 14; TEMP 35.8; O2SAT 93
[2020-10-14] MEDS: MORPHINE SULFATE (*CRX) 2 MG/ML INJ IV PUSH (10:47)
--- NOTE | 2020-10-14 13:41 | PM.IMPN ---
Progress Note: A&P Assessment and Plan (1) Palliative care by specialist: Code(s): Z51.5 - Encounter for palliative care Status: Acute Assessment and Plan: Meets criteria for hospice GIP due to uncontrolled pain and dyspnea requiring continuous narcotic infusion for control Remainder of palliative regimen as ordered PPS score 30 pm 10/13 10/13 Increase morphine drip to 1mg/hr and bolus to 2mg IV q 2h prn 10/14 Added gabapentin 300mg tid and hydroxyzine 12.5mg q 6h prn itching Discussed with patient and daughter at bedside px and disposition (2) Acute CVA (cerebrovascular accident): Code(s): I63.9 - Cerebral infarction, unspecified Status: Acute (3) Lung cancer: Qualifiers: Laterality: unspecified laterality Lung location: unspecified part of lung Qualified Code(s): C34.90 - Malignant neoplasm of unspecified part of unspecified bronchus or lung Code(s): C34.90 - Malignant neoplasm of unspecified part of unspecified bronchus or lung Status: Acute (4) Diastolic congestive heart failure: Qualifiers: Heart failure chronicity: chronic Qualified Code(s): I50.32 - Chronic diastolic (congestive) heart failure Code(s): I50.30 - Unspecified diastolic (congestive) heart failure Status: Chronic (5) Peripheral artery disease: Code(s): I73.9 - Peripheral vascular disease, unspecified Status: Acute (6) Diabetes mellitus with hyperglycemia: Qualifiers: Diabetes mellitus penitentiary insulin use: without penitentiary use Diabetes mellitus type: type 2 Qualified Code(s): E11.65 - Type 2 diabetes mellitus with hyperglycemia Code(s): E11.65 - Type 2 diabetes mellitus with hyperglycemia Status: Acute (7) Leg ulcer: Qualifiers: Laterality: unspecified laterality Non-pressure ulcer stage: unspecified non-pressure ulcer stage Qualified Code(s): L97.909 - Non-pressure chronic ulcer of unspecified part of unspecified lower leg with unspecified severity Code(s): L97.909 - Non-pressure chronic ulcer of unspecified part of unspecified lower leg with unspecified severity Status: Acute Subjective Date/time seen: 10/14/20 13:41 Interval history: Admitted [facility] 10/12 PM for uncontrolled pain. 10/14: Itching of face. Mild to moderate pain LLE. Aching. Sleeps most of time. Ate a few bites of a donut. Drank coffee. Review of Systems Review of Systems: ROS unobtainable: Yes unobtainable due to medical condition Exam Narrative: Exam Narrative: SKIN: Irregular stage unknown ulceration with black eschar at base on left proximal and distal leg in serpiginous pattern anterolaterally and posteriorly. HEENT: PERRL, sclerae nonicteric, pharyngeal mucosa pink and intact. Ectropion OS. NECK: No JVD CHEST: Clear to auscultation. Normal effort. HEART: NL S1/S2, regular, no murmur ABDOMEN: BS+, soft, nontender, no mass, no bruits EXTREMITIES: No cyanosis, edema, or clubbing. No palpable pedal pulses NEUROLOGIC: CN right facial droop and dysarthric speech and some word-finding difficulty. Right side about 4/5 weakness proximally and distally. MUSCULOSKELETAL: Tone and strength symmetric. PSYCH: Drowsy, dozes intermittently during exam. Oriented to person, place, and year. Objective Data Vital Signs Vital Signs: Vital Signs - 24 hr 10/13/20 20:00 10/13/20 21:10 10/14/20 08:00 Temperature 96.7 F L 96.5 F L Pulse Rate 98 98 89 Respiratory Rate 18 18 14 Blood Pressure 159/60 H 139/47 L Pulse Oximetry 94 94 93 Intake/Output Intake/Output: Intake & Output 10/11/20 10/12/20 10/13/20 10/14/20 23:59 23:59 23:59 23:59 Intake Total 0 250 98.5 Output Total 300 Balance 0 250 -201.5 Meds/Results Medications: Active Medications Generic Name Dose Route Start Last Admin Trade Name Freq PRN Reason Stop Dose Admin Acetaminophen 650 mg 10/13/20 17:00 10/14/20 12:48 Acetaminophen Elixir 32
[2020-10-14] MEDS: MORPHINE SULFATE INJ (*CRX) 50 MG in SODIUM CHLORIDE 0.9% IV 95 ML IV CONT (17:51)
[2020-10-14 18:18] LABS: Glucose Point of Care 123 mg/dl (65-105)
[2020-10-14 19:55] VITALS: BP 158/52; PULSE 93; RESP 15; TEMP 36.2; O2SAT 98
[2020-10-14] MEDS: ACETAMINOPHEN ELIXIR 325 MG/10.15 ML UDC 650 MG PO (21:24)
[2020-10-14] MEDS: MELATONIN 5 MG TABLET PO (21:24)
[2020-10-14 22:15] VITALS: PULSE 93; RESP 15; O2SAT 98
[2020-10-15 02:53] VITALS: O2SAT 96
[2020-10-15] MEDS: GABAPENTIN 300 MG CAPSULE PO (08:11)
[2020-10-15] MEDS: ACETAMINOPHEN ELIXIR 325 MG/10.15 ML UDC 650 MG PO ×2 (08:11→21:37)
[2020-10-15 08:55] VITALS: O2SAT 96
[2020-10-15] MEDS: MORPHINE SULFATE (*CRX) 2 MG/ML INJ IV PUSH ×2 (10:51→13:40)
[2020-10-15 13:58] VITALS: BP 150/68; PULSE 105; RESP 16; TEMP 37.1; O2SAT 95
--- NOTE | 2020-10-15 19:04 | PM.IMPN ---
Progress Note: A&P Assessment and Plan (1) Palliative care by specialist: Code(s): Z51.5 - Encounter for palliative care Status: Acute Assessment and Plan: Meets criteria for hospice GIP due to uncontrolled pain and dyspnea requiring continuous narcotic infusion for control Remainder of palliative regimen as ordered PPS score 30 pm 10/13 10/13 Increased morphine drip to 1mg/hr and bolus to 2mg IV q 2h prn 10/14 Added gabapentin 300mg tid and hydroxyzine 12.5mg q 6h prn itching 10/15 Increased morphine to 2mg/hr and 4mg q 2 hr prn He appears to be declining precipitously (2) Acute CVA (cerebrovascular accident): Code(s): I63.9 - Cerebral infarction, unspecified Status: Acute (3) Lung cancer: Qualifiers: Laterality: unspecified laterality Lung location: unspecified part of lung Qualified Code(s): C34.90 - Malignant neoplasm of unspecified part of unspecified bronchus or lung Code(s): C34.90 - Malignant neoplasm of unspecified part of unspecified bronchus or lung Status: Acute (4) Diastolic congestive heart failure: Qualifiers: Heart failure chronicity: chronic Qualified Code(s): I50.32 - Chronic diastolic (congestive) heart failure Code(s): I50.30 - Unspecified diastolic (congestive) heart failure Status: Chronic (5) Peripheral artery disease: Code(s): I73.9 - Peripheral vascular disease, unspecified Status: Acute (6) Diabetes mellitus with hyperglycemia: Qualifiers: Diabetes mellitus type: type 2 Diabetes mellitus half-way insulin use: without half-way use Qualified Code(s): E11.65 - Type 2 diabetes mellitus with hyperglycemia Code(s): E11.65 - Type 2 diabetes mellitus with hyperglycemia Status: Acute (7) Leg ulcer: Qualifiers: Laterality: unspecified laterality Non-pressure ulcer stage: unspecified non-pressure ulcer stage Qualified Code(s): L97.909 - Non-pressure chronic ulcer of unspecified part of unspecified lower leg with unspecified severity Code(s): L97.909 - Non-pressure chronic ulcer of unspecified part of unspecified lower leg with unspecified severity Status: Acute Subjective Date/time seen: 10/15/20 19:04 Interval history: Admitted [facility] 10/12 PM for uncontrolled pain. 10/15: Required increase in morphine due to LLE pain this afternoon. Doing much better. Review of Systems Review of Systems: ROS unobtainable: Yes unobtainable due to medical condition Exam Narrative: Exam Narrative: SKIN: Irregular stage unknown ulceration with black eschar at base on left proximal and distal leg in serpiginous pattern anterolaterally and posteriorly. HEENT: PERRL, sclerae nonicteric, pharyngeal mucosa pink and intact. Ectropion OS. NECK: No JVD CHEST: Clear to auscultation. Normal effort. HEART: NL S1/S2, regular, no murmur ABDOMEN: BS+, soft, nontender, no mass, no bruits EXTREMITIES: No cyanosis, edema, or clubbing. No palpable pedal pulses NEUROLOGIC: CN right facial droop and dysarthric speech and some word-finding difficulty. Right side about 4/5 weakness proximally and distally. MUSCULOSKELETAL: Tone and strength symmetric. PSYCH: Drowsy and difficult to arouse during exam. Oriented to person. Objective Data Vital Signs Vital Signs: Vital Signs - 24 hr 10/14/20 19:55 10/14/20 22:15 10/15/20 02:53 Temperature 97.2 F L Pulse Rate 93 93 Respiratory Rate 15 15 Blood Pressure 158/52 H Pulse Oximetry 98 98 96 10/15/20 08:55 10/15/20 13:58 Temperature 98.8 F Pulse Rate 105 H Respiratory Rate 16 Blood Pressure 150/68 H Pulse Oximetry 96 95 Intake/Output Intake/Output: Intake & Output 10/12/20 10/13/20 10/14/20 10/15/20 23:59 23:59 23:59 23:59 Intake Total 0 250 200.0 503.3 Output Total 540 325 Balance 0 250 -340.0 178.3 Meds/Results Medications: Active Medications Generic Name Dose Route Start Last Admin Tr
[2020-10-15 19:37] VITALS: BP 154/66; PULSE 100; RESP 18; TEMP 35.9; O2SAT 91
[2020-10-15 20:15] VITALS: O2SAT 91
[2020-10-15] MEDS: LORazepam INJ (*CRX) 2 MG/ML VIAL 0.5 MG IV PUSH (21:37)
[2020-10-15] MEDS: MELATONIN 5 MG TABLET PO (21:38)
[2020-10-16] MEDS: MORPHINE SULFATE INJ (*CRX) 50 MG in SODIUM CHLORIDE 0.9% IV 95 ML IV CONT ×2 (01:03→17:39)
[2020-10-16 09:50] VITALS: O2SAT 87
[2020-10-16 10:14] VITALS: BP 160/52; PULSE 104; RESP 18; TEMP 36.6; O2SAT 87
[2020-10-16 15:42] VITALS: O2SAT 95
--- NOTE | 2020-10-16 15:56 | PM.IMPN ---
Progress Note: A&P Assessment and Plan (1) Palliative care by specialist: Code(s): Z51.5 - Encounter for palliative care Status: Acute Assessment and Plan: Meets criteria for hospice GIP due to uncontrolled pain and dyspnea requiring continuous narcotic infusion for control Remainder of palliative regimen as ordered PPS score 30 pm 10/13 10/13 Increased morphine drip to 1mg/hr and bolus to 2mg IV q 2h prn 10/14 Added gabapentin 300mg tid and hydroxyzine 12.5mg q 6h prn itching 10/15 Increased morphine to 2mg/hr and 4mg q 2 hr prn 10/16 Mental status worsened He appears to be declining precipitously (2) Acute CVA (cerebrovascular accident): Code(s): I63.9 - Cerebral infarction, unspecified Status: Acute (3) Lung cancer: Qualifiers: Laterality: unspecified laterality Lung location: unspecified part of lung Qualified Code(s): C34.90 - Malignant neoplasm of unspecified part of unspecified bronchus or lung Code(s): C34.90 - Malignant neoplasm of unspecified part of unspecified bronchus or lung Status: Acute (4) Diastolic congestive heart failure: Qualifiers: Heart failure chronicity: chronic Qualified Code(s): I50.32 - Chronic diastolic (congestive) heart failure Code(s): I50.30 - Unspecified diastolic (congestive) heart failure Status: Chronic (5) Peripheral artery disease: Code(s): I73.9 - Peripheral vascular disease, unspecified Status: Acute (6) Diabetes mellitus with hyperglycemia: Qualifiers: Diabetes mellitus type: type 2 Diabetes mellitus filler leaf cutter long insulin use: without filler leaf cutter long use Qualified Code(s): E11.65 - Type 2 diabetes mellitus with hyperglycemia Code(s): E11.65 - Type 2 diabetes mellitus with hyperglycemia Status: Acute (7) Leg ulcer: Qualifiers: Laterality: unspecified laterality Non-pressure ulcer stage: unspecified non-pressure ulcer stage Qualified Code(s): L97.909 - Non-pressure chronic ulcer of unspecified part of unspecified lower leg with unspecified severity Code(s): L97.909 - Non-pressure chronic ulcer of unspecified part of unspecified lower leg with unspecified severity Status: Acute Subjective Date/time seen: 10/16/20 15:56 Interval history: Admitted [facility] 10/12 PM for uncontrolled pain. 10/16: Sleeping most of day. No PO intake. Review of Systems Review of Systems: ROS unobtainable: Yes unobtainable due to medical condition Exam Narrative: Exam Narrative: SKIN: Irregular stage unknown ulceration with black eschar at base on left proximal and distal leg in serpiginous pattern anterolaterally and posteriorly. HEENT: PERRL, sclerae nonicteric, pharyngeal mucosa pink and intact. Ectropion OS. NECK: No JVD CHEST: Clear to auscultation. Normal effort. HEART: NL S1/S2, regular, no murmur ABDOMEN: BS+, soft, nontender, no mass, no bruits EXTREMITIES: No cyanosis, edema, or clubbing. No palpable pedal pulses NEUROLOGIC: CN right facial droop and dysarthric speech and some word-finding difficulty. Right side about 4/5 weakness proximally and distally. MUSCULOSKELETAL: Tone and strength symmetric. PSYCH: Drowsy and difficult to arouse during exam. Oriented to person. Objective Data Vital Signs Vital Signs: Vital Signs - 24 hr 10/15/20 19:37 10/15/20 20:15 10/16/20 09:50 Temperature 96.6 F L Pulse Rate 100 Respiratory Rate 18 Blood Pressure 154/66 H Pulse Oximetry 91 91 87 L 10/16/20 10:14 10/16/20 15:42 Temperature 97.9 F Pulse Rate 104 H Respiratory Rate 18 Blood Pressure 160/52 H Pulse Oximetry 87 L 95 Intake/Output Intake/Output: Intake & Output 10/13/20 10/14/20 10/15/20 10/16/20 23:59 23:59 23:59 23:59 Intake Total 250 200.0 503.3 91.2 Output Total 540 325 Balance 250 -340.0 178.3 91.2 Meds/Results Medications: Active Medications Generic Name Dose Route Start Last Admin Trade Name
[2020-10-16] MEDS: LORazepam INJ (*CRX) 2 MG/ML VIAL 0.5 MG IV PUSH (18:09)
[2020-10-16 20:00] VITALS: BP 152/70; PULSE 119; RESP 16; TEMP 36.1; O2SAT 98
[2020-10-17] MEDS: LORazepam INJ (*CRX) 2 MG/ML VIAL 0.5 MG IV PUSH (03:07)
[2020-10-17 08:00] VITALS: BP 160/62; PULSE 99; RESP 14; TEMP 36.7; O2SAT 97
[2020-10-17 09:42] VITALS: O2SAT 91
[2020-10-17] MEDS: MORPHINE SULFATE INJ (*CRX) 50 MG in SODIUM CHLORIDE 0.9% IV 95 ML IV CONT (14:52)
--- NOTE | 2020-10-17 14:57 | PC.NURSE ---
Morphine drip changed, patient does not appear to be in any pain or distress.
--- NOTE | 2020-10-17 17:07 | PM.IMPN ---
Progress Note: A&P Assessment and Plan (1) Palliative care by specialist: Code(s): Z51.5 - Encounter for palliative care Status: Acute Assessment and Plan: Meets criteria for hospice GIP due to uncontrolled pain and dyspnea requiring continuous narcotic infusion for control Remainder of palliative regimen as ordered PPS score 30 pm 10/13 10/13 Increased morphine drip to 1mg/hr and bolus to 2mg IV q 2h prn 10/14 Added gabapentin 300mg tid and hydroxyzine 12.5mg q 6h prn itching 10/15 Increased morphine to 2mg/hr and 4mg q 2 hr prn 10/16 Mental status worsened He appears to be declining precipitously (2) Acute CVA (cerebrovascular accident): Code(s): I63.9 - Cerebral infarction, unspecified Status: Acute (3) Lung cancer: Qualifiers: Laterality: unspecified laterality Lung location: unspecified part of lung Qualified Code(s): C34.90 - Malignant neoplasm of unspecified part of unspecified bronchus or lung Code(s): C34.90 - Malignant neoplasm of unspecified part of unspecified bronchus or lung Status: Acute (4) Diastolic congestive heart failure: Qualifiers: Heart failure chronicity: chronic Qualified Code(s): I50.32 - Chronic diastolic (congestive) heart failure Code(s): I50.30 - Unspecified diastolic (congestive) heart failure Status: Chronic (5) Peripheral artery disease: Code(s): I73.9 - Peripheral vascular disease, unspecified Status: Acute (6) Diabetes mellitus with hyperglycemia: Qualifiers: Diabetes mellitus type: type 2 Diabetes mellitus superintendent container terminal insulin use: without superintendent container terminal use Qualified Code(s): E11.65 - Type 2 diabetes mellitus with hyperglycemia Code(s): E11.65 - Type 2 diabetes mellitus with hyperglycemia Status: Acute (7) Leg ulcer: Qualifiers: Laterality: unspecified laterality Non-pressure ulcer stage: unspecified non-pressure ulcer stage Qualified Code(s): L97.909 - Non-pressure chronic ulcer of unspecified part of unspecified lower leg with unspecified severity Code(s): L97.909 - Non-pressure chronic ulcer of unspecified part of unspecified lower leg with unspecified severity Status: Acute Subjective Date/time seen: 10/17/20 17:07 Interval history: Admitted [facility] 10/12 PM for uncontrolled pain. 10/17: Sleeping all day. No PO intake. Review of Systems Review of Systems: ROS unobtainable: Yes unobtainable due to medical condition Exam Narrative: Exam Narrative: SKIN: Irregular stage unknown ulceration with black eschar at base on left proximal and distal leg in serpiginous pattern anterolaterally and posteriorly. HEENT: PERRL, sclerae nonicteric, pharyngeal mucosa pink and intact. Ectropion OS. NECK: No JVD CHEST: Clear to auscultation. Normal effort. HEART: NL S1/S2, regular, no murmur ABDOMEN: BS+, soft, nontender, no mass, no bruits EXTREMITIES: No cyanosis, edema, or clubbing. No palpable pedal pulses NEUROLOGIC: CN right facial droop and dysarthric speech and some word-finding difficulty. Right side about 4/5 weakness proximally and distally. MUSCULOSKELETAL: Tone and strength symmetric. PSYCH: Drowsy and difficult to arouse during exam. Oriented to person. Objective Data Vital Signs Vital Signs: Vital Signs - 24 hr 10/16/20 20:00 10/17/20 08:00 10/17/20 09:42 Temperature 97.0 F L 98.1 F Pulse Rate 119 H 99 Respiratory Rate 16 14 Blood Pressure 152/70 H 160/62 H Pulse Oximetry 98 97 91 Intake/Output Intake/Output: Intake & Output 10/14/20 10/15/20 10/16/20 10/17/20 23:59 23:59 23:59 23:59 Intake Total 200.0 503.3 176.7 100 Output Total 540 325 350 Balance -340.0 178.3 176.7 -250 Meds/Results Medications: Active Medications Generic Name Dose Route Start Last Admin Trade Name Freq PRN Reason Stop Dose Admin Acetaminophen 650 mg 10/13/20 17:00 10/17/20 14:27 Acetaminophen Elixir 325 Mg/10.15 Ml
[2020-10-17 21:30] VITALS: O2SAT 90
[2020-10-18] MEDS: GLYCOPYRROLATE INJ (*SP) 0.2 MG/ML VIAL 0.1 MG IV PUSH (05:20)
[2020-10-18] MEDS: LORazepam INJ (*CRX) 2 MG/ML VIAL 0.5 MG IV PUSH (05:21)
[2020-10-18] MEDS: MORPHINE SULFATE (*CRX) 4 MG/ML INJ IV PUSH (05:51)
--- NOTE | 2020-10-18 08:45 | PC.NURSE ---
[facility] nurse arrived at 0810 to assess patient. VS obtained per [facility]. Gil RN arrived in room at 0840, patient demonstrates no signs of life. associate professor notified and confirmed time of at 0840. Odilon RN to notify Dr. Maharaj and family.
--- NOTE | 2020-10-18 09:44 | PC.NURSE ---
MTS staff notified of patients : David.
--- NOTE | 2020-10-18 17:16 | P.DN_ITS ---
Discharge Sum: Prov Provider Primary care physician: Cristhian Etienne MD Admitting provider: Sanju Maharaj MD Discharge Sum: Diag Contributing Factors (1) Acute CVA (cerebrovascular accident): (2) Lung cancer: (3) Diastolic congestive heart failure: (4) Peripheral artery disease: (5) Diabetes mellitus with hyperglycemia: (6) Leg ulcer: Discharge Sum: Summary Date and Time Date of admission: 10/12/20 15:45 Summary Details: 85-year-old gentleman with severe peripheral vascular disease since at leg ulcers on the left lower extremity for about 3 months. His activity level has declined over the last 3 months. He has been sleeping in a recliner due to discomfort. He was admitted to acute care on October 07 due to acute stroke. He had an old stroke in the carlos as bill by MRI. He had a new acute stroke in the left frontal parietal and temporal region in the distribution of the left middle cerebral artery. He had difficulty eating and speaking since the stroke. Speech became a little better. He is more alert. He is able to eat small bites with some choking. He is not able to ambulate or get out of bed on his own. He is able to make his needs known by just a chelating and speaking With moderately severe dysarthria. He does complain of left lower extremity discomfort that is moderately severe in spite of the continuous morphine infusion at 0.5 milligram/hour since yesterday afternoon. 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 Medications were titrated to comfort and he gradulally declined. He peacefully. Additional Data Attending physician: Sanju Maharaj MD
== END 2020-10-18 08:40 | disposition expired | DRG 951 ==
PROVIDERS: Admitting Provider Internal Medicine; PCP Family Medicine Adolescent Medicine; Visit Provider Internal Medicine
DX: Z51.5 Encounter for palliative care (principal); I63.9 Cerebral infarction, unspecified; C34.90 Malignant neoplasm of unspecified part of unspecified bronchus or lung; I50.32 Chronic diastolic (congestive) heart failure; L97.929 Non-pressure chronic ulcer of unspecified part of left lower leg with unspecified severity; G81.91 Hemiplegia, unspecified affecting right dominant side; R29.810 Facial weakness; R47.1 Dysarthria and anarthria; I11.0 Hypertensive heart disease with heart failure; K21.9 Gastro-esophageal reflux disease without esophagitis; E78.5 Hyperlipidemia, unspecified; E11.65 Type 2 diabetes mellitus with hyperglycemia; E11.51 Type 2 diabetes mellitus with diabetic peripheral angiopathy without gangrene; Z66 Do not resuscitate; Z87.891 Personal history of nicotine dependence
CPT/HCPCS: 82948; A9270; J2060; J2270